=== PATIENT | female | born 1940 | race Caucasian/White ===

== ENCOUNTER 2022-03-09 13:57 | Emergency (ER) | payer MEDICARE, SELFPAY ==
[2022-03-09] VITALS (44 sets, daily range): BP systolic 125–203; BP diastolic 56–91; PULSE 66–96; RESP 12–26; TEMP 36.6; O2SAT 99–100
--- NOTE | 2022-03-09 14:32 | ED.GENADULT ---
HPI - General Adult General Chief complaint: Psychiatric Symptoms Stated complaint: altered Time Seen by Provider: 03/09/22 14:11 Source: patient and EMS Mode of arrival: EMS Limitations: no limitations History of Present Illness HPI narrative: Patient is an 81-year-old female sent here from the correction because I do not want to be there according to patient. EMS states that patient was angry and made a comment about I am tired of this place 1 to get out and jump out the window . Patient denies thoughts of hurting herself, denies suicidal ideation. Patient states that she made that comment because she does not want to be there and wants to leave. Patient states it is my idiot son and his that left me there referring to [facility]. Patient states that she started residing at the correction 1 week ago. Patient states that she would rather be home and does not want to be in a correction and that is why she made those comments. Related Data Allergies Allergy/AdvReac Type Severity Reaction Status Date / Time codeine Allergy Nausea and Verified 11/24/13 12:14 Vomiting niacin Allergy HIVES Verified 11/24/13 12:14 isosorbide [From Imdur] AdvReac Headache Verified 03/09/22 17:07 METALS Allergy Intermediate RASH Uncoded 11/24/13 12:14 REFALEN AdvReac Intermediate FLU LIKE Uncoded 11/24/13 12:14 SYMPTOMS Review of Systems Review of Systems: All systems reviewed & are unremarkable except as noted in HPI and below Constitutional: Constitutional: Denies body ache(s), Denies chills, Denies excessive sweating, Denies fatigue, Denies fever(s), Denies headache(s), Denies lethargy, Denies malaise, Denies weakness and Denies weight loss Eyes: Eyes: Denies blurry vision, Denies change in vision and Denies loss of vision ENT: Denies dizziness, Denies ear discharge, Denies headache(s), Denies lip swelling, Denies epistaxis, Denies nasal congestion, Denies neck pain, Denies throat swelling and Denies tongue swelling Cardiovascular: Cardiovascular: Denies chest pain, Denies chest pain at rest, Denies chest pain with activity, Denies diaphoresis, Denies rapid heart rate, Denies edema, Denies irregular heart rhythm, Denies lightheadedness, Denies palpitations, Denies dyspnea and Denies dyspnea on exertion Respiratory: Respiratory: Denies chest congestion, Denies cough, Denies hemoptysis, Denies dyspnea and Denies dyspnea on exertion Gastrointestinal: Gastrointestinal: Denies abdominal pain, Denies melena, Denies hematochezia, Denies diarrhea, Denies nausea, Denies vomiting and Denies hematemesis Musculoskeletal: Musculoskeletal: Denies abnormal gait, Denies deformity, Denies joint swelling, Denies limited range of motion, Denies neck pain and Denies numbness Neurologic: Denies Abnormal speech present, Denies abnormal gait, Denies confusion, Denies dizziness, Denies headache(s), Denies focal weakness, Denies loss of vision, Denies numbness, Denies Other visual disturbances, Denies Sensory deficit (Neuro) and Denies weakness Psychiatric: Psychiatric: Denies confusion, Denies depression, Denies auditory hallucinations, Denies homicidal ideation and Denies suicidal ideation Endocrine: Endocrine: Denies cold intolerance, Denies excessive sweating, Denies fatigue, Denies heat intolerance and Denies palpitations Hematologic/Lymphatic: Hematologic/Lymphatic: Denies easy bleeding and Denies easy bruising Allergic/Immunologic: Allergic/Immunologic: Denies lip swelling, Denies throat swelling and Denies tongue swelling PMFSH Comments Family history: Unknown Social history: Non-smoker no EtOH use, recent correction resident Exam Const: General: cooperative, healthy appearing, comfortable, no acute distress, well developed, alert and awake; No confusion Orientation/consciousness: oriented to person, oriented to place and No confusion Limitations: no limitations HENMT: Head: normal to inspection, normocephalic and atraumati
[2022-03-09 14:33] LABS: Basophils Absolute Auto 0.1 K/mm3 (0.0-0.1); Basophils Percent Auto 0.9 % (0.2-1.2); Eosinophils Absolute Auto 0.1 K/mm3 (0-0.3); Eosinophils Percent Auto 0.8 % (0-4.4); Hematocrit 40.5 % (37.0-47.0); Immature Granulocyte Absolute 0.02 K/mm3 (0.00-0.031); Immature Granulocyte Percent A 0.3 % (0-0.5); Lymphocytes Absolute Auto 2.06 K/mm3 (0.9-3.2); Lymphocytes Percent Auto 32.4 % (18.3-44.2); Mean Corpuscular HGB Conc 34.6 g/dl (32-36); Mean Corpuscular Volume 86.7 fl (80-100); Mean Platelet Volume 11.9 fl (7.4-10.4); Monocytes Absolute Auto 0.6 K/mm3 (0.1-0.6); Monocytes Percent Auto 8.7 % (2.6-8.5); Neutrophils Absolute Auto 3.6 K/mm3 (1.3-6.7); Neutrophils Percent Auto 56.9 % (45.5-73.1); Platelet Count Result 214 k/mm3 (150-375); Red Blood Count 4.67 M/mm3 (4.2-5.4); Red Cell Distribution Width 13.5 % (11.5-14.5); White Blood Count 6.4 K/mm3 (4.5-10.0)
--- NOTE | 2022-03-09 14:34 | PC.NURSE ---
Per EDP Tiffanie, no sitter needed. Violette from care coordination contacted.
[2022-03-09 14:42] LABS: Alanine Aminotransferase 23 U/L (4-35); Albumin Level 4.7 g/dL (3.5-5.1); Alkaline Phosphatase 108 U/L (38-126); Anion Gap 12 mmol/L (8-16); Aspartate Amino Transferase 26 U/L (14-36); Bilirubin,Total 0.8 mg/dL (0.2-1.3); Blood Urea Nitrogen 14 mg/dL (7-17); Calcium 9.7 mg/dL (8.4-10.2); Carbon Dioxide 21 mmol/L (22-30); Chloride 104 mmol/L (98-107); Estimated Glomerular Filt Rate > 60; Glucose 243 mg/dL (65-110); Potassium 3.8 mmol/L (3.4-5.0); Sodium 137 mmol/L (137-145)
--- NOTE | 2022-03-09 14:54 | PCCCNOTE ---
Met with patient bedside, patient is alert and oriented x 1-2 with dementia. patient was brought to ED by EMS from [facility] for suicidal thoughts. CC as patient if she felt suicidal or homicidal and she was very adamant that she was not, and she also does not want to hurt her son. patient states that they recently put her in a jail and she doesn't like it there. CC attempted to call patients son for transportation home however, son bg, did not answer. CC left a voicemail requesting a call back. plan is for patient to return to assisted living. CC will continue to follow for any needs that may arise.
[2022-03-09 14:58] LABS: Acetaminophen < 10 ug/mL (10-30); Ethanol < 10 mg/dL (<10); Salicylate < 1.0 mg/dL (2-20)
[2022-03-09 17:03] LABS: Add Urine Microscopic? YES; Appearance Urine Cloudy (Clear); Bacteria Urine Trace /hpf; Bilirubin Urine Negative (Negative); Blood Urine Negative (Negative); Color Urine Amber (Yellow); Glucose Urine UA 1+ mg/dL (Negative); Ketones Urine 2+ mg/dL (Negative); Leukocyte Esterase Ur 2+ LEU/UL (Negative); Mucus Urine Moderate /lpf; Nitrate Urine Negative (Negative); Protein Urine 1+ mg/dL (Negative); Squamous Epithelial Cell Urine Occasional /hpf (Few); WBC Urine 16-20 /hpf
[2022-03-09 17:04] LABS: Specific Grav Ur 1.033 (1.001-1.035)
--- NOTE | 2022-03-09 19:15 | PC.NURSE ---
pt ready for discharge, report called to Ibeth at [facility] at [place]. Pt comfortable at this time, denies any thoughts of hurting herself.
--- NOTE | 2022-03-09 19:18 | PC.NURSE ---
called [facility] to request transport. ETA [id number]
== END 2022-03-09 20:19 ==
PROVIDERS: Emergency Medicine; Emergency Provider Emergency Medicine; PCP Family Medicine
DX: N39.0 Urinary tract infection, site not specified (principal); R45.4 Irritability and anger
CPT/HCPCS: 36415; 80053; 80307; 81001; 84443; 85025; 87086; 87088; 99283; A9270

== ENCOUNTER 2022-04-29 12:59 | Inpatient (IN) | payer MEDICARE, SELFPAY ==
[2022-04-29] VITALS (8 sets, daily range): BP systolic 90–147; BP diastolic 44–52; PULSE 59–68; RESP 16–23; TEMP 36.1–36.7; O2SAT 96–100; BMI 23.0
--- NOTE | ~2022-04-29 | US_ITS ---
EXAMINATION: US carotid duplex BI DATE: 04/30/2022 10:53 INDICATION: Syncope. Cerebral atherosclerosis. TECHNIQUE: Grayscale, color Doppler, and pulsed Doppler images of the cervical carotid arteries were obtained. The degree of vessel stenosis is placed in one of the following categories: normal, <50%, 5 0-69%, >=70% but less than near-occlusion, near-occlusion, or total occlusion. Note that percent sten osis relative to normal distal artery lumen diameter is indirectly measured from velocity measurement s as described by Karsten, et al. Radiology 2003; 229:340-346. COMPARISON: None. FINDINGS: RIGHT: The right common carotid artery (CCA) peak systolic velocity (PSV) is 127 cm/s. The right internal ca rotid artery (ICA) PSV is 102 cm/s. The right ICA end-diastolic velocity (EDV) is 31 cm/s. The right ICA/CCA PSV ratio is 0.8. Grayscale and color Doppler images yield an estimate of <50% diameter reduc tion from plaque in the ICA. The external carotid artery (ECA) PSV is 118 cm/s. There is antegrade fl ow in the right vertebral artery. LEFT: The left CCA PSV is 82 cm/s. The left ICA PSV is 81 cm/s. The left ICA EDV is 23 cm/s. The left ICA/C CA PSV ratio is 1.0. Grayscale and color Doppler images yield an estimate of <50% diameter reduction from plaque in the ICA. The ECA PSV is 118 cm/s. There is antegrade flow in the left vertebral artery . IMPRESSION: 1. <50% stenosis in the right internal carotid artery. 2. <50% stenosis in the left internal carotid artery. Reviewed, dictated and finalized at location A.
--- NOTE | ~2022-04-29 | CT_ITS ---
EXAMINATION: CT pelvis wo con DATE: 04/29/2022 14:39 INDICATION: Left hip pain. Fall. TECHNIQUE: Computed tomography (CT) of the pelvis was performed without intravenous contrast. Automat ed exposure control and iterative reconstruction technique were employed. The dose-length product was 139.56 mGy-cm. COMPARISON: Left hip radiograph 04/29/2022 FINDINGS: There is no free intraperitoneal fluid. There are chronic bilateral L5 pars defects. There is 8 mm anterolisthesis of L5 on S1. There is severe degenerative disc disease at L5-S1 with chronic 2/5 height loss of L5 vertebral body posteriorly. There are acute fractures involving the left superi or and inferior pubic rami and left parasymphyseal pubis. There is mild osteoarthritis of the hips. IMPRESSION: 1. Acute fractures of the left superior and inferior pubic rami and left parasymphyseal pubis. 2. Mild osteoarthritis of the hips. Reviewed, dictated and finalized at location B. IMPRESSION: 1. Acute fractures of the left superior and inferior pubic rami and left parasy mphyseal pubis. 2. Mild osteoarthritis of the hips.
--- NOTE | ~2022-04-29 | XR_ITS ---
XR hip LT min 2V DATE: 04/29/2022 13:58 INDICATION: Fall. Left hip pain. TECHNIQUE: AP and crosstable lateral views of left hip COMPARISON: None FINDINGS: There is osteopenia. There are fractures of the left superior and inferior pubic ramus. No fracture of the left hip or dis location of the left hip is noted otherwise. The pubic symphysis and sacroiliac joints appear intact. IMPRESSION: Fractures of the superior and inferior pubic rami. Additional pelvic ring fracture may be present. Consider CT pelvis examination. Reviewed, dictated and finalized at location A. IMPRESSION: Fractures of the superior and inferior pubic rami. Additional pelvi c ring fracture may be present. Consider CT pelvis examination.
--- NOTE | ~2022-04-29 | CT_ITS ---
EXAMINATION: CT brain wo con DATE: 04/29/2022 13:52 INDICATION: Fall. TECHNIQUE: Computed tomography (CT) of the head was performed without intravenous contrast. The mA wa s adjusted according to patient size. Iterative reconstruction technique was employed. The dose-lengt h product was 605.33 mGy-cm. 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 T here is an infarct involving the right temporal occipital region. There is no intracranial hemorrhage or abnormal mass lesion. The ventricles are normal in size. The paranasal sinuses are clear. The mas toid air cells are normal. There are likely changes of ocular lens replacement surgeries. IMPRESSION: 1. Infarct involving the right temporal occipital region, likely subacute or chronic. 2. 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 Reviewed, dictated and finalized at location B. IMPRESSION: 1. Infarct involving the right temporal occipital region, likely subacute or ch ronic. 2. 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
--- NOTE | ~2022-04-29 | XR_ITS ---
XR chest 1V DATE: 04/29/2022 13:58 INDICATION: Unwitnessed fall TECHNIQUE: AP chest COMPARISON: None FINDINGS: Status post sternotomy. Diffuse osteopenia. Heart size appears within normal range. Is aortic arch calcification. No hilar or mediastinal enlargement is evident. No pulmonary consolidation, pleural effusion or pneumothorax. Diffuse osteopenia. IMPRESSION: No active cardiopulmonary disease Status post sternotomy Osteopenia Reviewed, dictated and finalized at location A.
--- NOTE | ~2022-04-29 | XR_ITS ---
EXAM: XR wrist LT min 3V DATE: 04/29/2022 14:45 HISTORY: fall,medial wrist pain and bruising . COMPARISON: None available. FINDINGS: Decreased mineralization. Comminuted minimally impacted and mildly dorsally angulated frac ture of the distal left radius with extension to the radiocarpal joint. Transverse minimally displace d ulnar styloid fracture.. No lytic or blastic lesion. Scattered degenerative changes. No erosion or periosteal change. Soft tissue swelling. IMPRESSION: Comminuted minimally impacted and mildly dorsally angulated intra-articular left distal r adial fracture. Minimally displaced left ulnar styloid fracture. Reviewed, dictated and finalized at location K. IMPRESSION: Comminuted minimally impacted and mildly dorsally angulated intra-a rticular left distal radial fracture. Minimally displaced left ulnar styloid fr acture.
--- NOTE | ~2022-04-29 | XR_ITS ---
EXAM: XR knee LT 2V DATE: 04/29/2022 13:58 HISTORY: fall, pain . COMPARISON: None available. FINDINGS: Osteopenia. No fracture or dislocation. No lytic or blastic lesion. Mild tricompartmental osteoarthritis. No erosion or periosteal change. Soft tissues within normal limits. IMPRESSION: No acute osseous finding in the left knee. Reviewed, dictated and finalized at location K.
--- NOTE | 2022-04-29 13:17 | ECG_ITS ---
Measurements Intervals [place] Rate: 65 P: 57 SD: 158 QRS: 45 QRSD: 142 T: 56 QT: 522 QTc: 543 Interpretive Statements SINUS RHYTHM LEFT BUNDLE BRANCH BLOCK [120+ ms QRS DURATION, 80+ ms Q/S IN V1/V2, 85+ ms R IN I/aVL/V5/V6] ABNORMAL ECG NO PREVIOUS ECG AVAILABLE FOR COMPARISON Electronically Signed On 04-29-2022 15:03:58 CDT by Mode Richard M.D.
--- NOTE | 2022-04-29 13:20 | ED.FALL ---
HPI - Fall General Chief Complaint: Fall Stated Complaint: fall; left hip & wrist pain Time Seen by Provider: 04/29/22 13:03 History of Present Illness HPI Narrative: Patient is an 81-year-old female here for evaluation after unwitnessed fall at her long-term today. History limited as patient is severely hard of hearing and also due to her baseline mental status. She states she is unsure what happened this morning, she said that she was feeling in her usual state of health but she woke up on the floor. She does not believe she hit her head or lost consciousness. She is currently complaining of left hip pain, left wrist pain and left knee pain. She tells me she is able to walk usually without assistance, but she is unsure if she is able to now. She denies chest pain, shortness of breath, headaches, visual changes, numbness or tingling in her legs. Related Data Home Medications Medication Instructions Recorded Confirmed [place] 3 Fish Oil 1,000 mg PO TID 04/29/22 04/29/22 acetaminophen 325 mg capsule 650 mg PO Q6H PRN Pain (Scale 04/29/22 04/29/22 (Tylenol) Score 1-3) amantadine HCl 100 mg tablet 100 mg PO BID 04/29/22 04/29/22 aspirin 81 mg capsule 81 mg PO DAILY 04/29/22 04/29/22 citalopram 10 mg tablet 10 mg PO DAILY 04/29/22 04/29/22 dextrose-vitamin D3 10,000 PO DAILY 04/29/22 docusate sodium 100 mg tablet 100 mg PO BID 04/29/22 04/29/22 donepezil 10 mg tablet 10 mg PO DAILY 04/29/22 04/29/22 dorzolamide 2 % eye drops 1 drp LEFT EYE TID 04/29/22 04/29/22 insulin glargine 100 unit/mL (3 ea subcut 04/29/22 mL) subcutaneous pen (Basaglar KwikPen U-100 Insulin) insulin lispro 100 unit/mL ml 04/29/22 subcutaneous solution (Humalog U-100 Insulin) lisinopril 10 mg tablet 10 mg PO DAILY 04/29/22 04/29/22 pantoprazole 40 mg tablet,delayed 40 mg PO DAILY 04/29/22 04/29/22 release simvastatin 20 mg tablet 20 mg PO HS 04/29/22 04/29/22 Allergies Allergy/AdvReac Type Severity Reaction Status Date / Time codeine Allergy Nausea and Verified 04/29/22 16:17 Vomiting niacin Allergy HIVES Verified 04/29/22 16:17 isosorbide [From Imdur] AdvReac Headache Verified 04/29/22 16:17 METALS Allergy Intermediate RASH Uncoded 11/24/13 12:14 REFALEN AdvReac Intermediate FLU LIKE Uncoded 11/24/13 12:14 SYMPTOMS Review of Systems Review of Systems: Gen: Denies fevers or chills Eyes: Denies eye pain or visual change ENT: Denies congestion Respiratory: Denies shortness of breath or cough CV: Denies chest pain or palpitations GI: Denies abdominal pain nausea, emesis or diarrhea : denies burning, urgency, frequency or hematuria Musculoskeletal: Reports left wrist, left hip and knee pain Neuro: Denies numbness, tingling, weakness or focal weakness Skin: Denies rash Except as documented, all other systems reviewed and negative [facility] Family History Family History (Updated 04/29/22 @ 18:49 by Jihan Jaime, RN) Other Unknown family medical history Social History Social History Smoking status: Former smoker Alcohol intake: never Substance use: never Spiritual care concerns: No Exam Narrative: APPEARANCE: Well appearing, no pain in distress, well-nourished. Head: normocephalic and atraumatic. EYES: PERRLA/EOMI, conjunctivae clear NOSE: No nasal drainage EARS: Hard of hearing. External ear normal in appearance THROAT: Oropharynx is clear. Mucous membranes are moist. NECK: Supple. No adenopathy, no masses. RESPIRATORY: Airway patent, respirations nonlabored. Clear to auscultation bilaterally, no rales, rhonchi, wheezing. CARDIOVASCULAR: Regular rate and rhythm without murmurs, rubs, or gallops. ABDOMINAL: Normoactive bowel sounds. Soft, nontender, nondistended. No rebound tenderness or guarding. MUSCULOSKELETAL: No bony tenderness to left hip or knee. Pain in hip elicited with flexion of hip and knee. No pain with internal or external rotation of the leg.Tender to palpation over radial sty
[2022-04-29] MEDS: SODIUM CHLORIDE 0.9% IV 1,000 ML 999 ML IV CONT (13:35)
[2022-04-29 13:44] LABS: Basophils Percent Auto 0.6 % (0.2-1.2); Eosinophils Absolute Auto 0.2 K/mm3 (0-0.3); Eosinophils Percent Auto 2.6 % (0-4.4); Hematocrit 38.2 % (37.0-47.0); Hemoglobin 13.1 g/dL (12.0-15.0); Immature Granulocyte Absolute 0.07 K/mm3 (0.00-0.031); Immature Granulocyte Percent A 1.1 % (0-0.5); Lymphocytes Absolute Auto 2.17 K/mm3 (0.9-3.2); Lymphocytes Percent Auto 33.3 % (18.3-44.2); Mean Corpuscular HGB Conc 34.3 g/dl (32-36); Mean Corpuscular Hemoglobin 30.6 pg (26-34); Mean Corpuscular Volume 89.3 fl (80-100); Monocytes Absolute Auto 0.4 K/mm3 (0.1-0.6); Monocytes Percent Auto 5.7 % (2.6-8.5); Neutrophils Absolute Auto 3.7 K/mm3 (1.3-6.7); Neutrophils Percent Auto 56.7 % (45.5-73.1); Platelet Count Result 195 k/mm3 (150-375); Red Blood Count 4.28 M/mm3 (4.2-5.4); Red Cell Distribution Width 13.6 % (11.5-14.5); White Blood Count 6.5 K/mm3 (4.5-10.0)
[2022-04-29 13:54] LABS: Lactic Acid Reflex 2.2 mmol/L (0.7-2.0)
[2022-04-29 13:56] LABS: Alanine Aminotransferase 31 U/L (6-35); Albumin Level 4.3 g/dL (3.5-5.1); Alkaline Phosphatase 76 U/L (38-126); Anion Gap 9 mmol/L (8-16); Aspartate Amino Transferase 29 U/L (14-36); Bilirubin,Total 0.4 mg/dL (0.2-1.3); Blood Urea Nitrogen 16 mg/dL (7-17); Calcium 9.5 mg/dL (8.4-10.2); Carbon Dioxide 21 mmol/L (22-30); Chloride 105 mmol/L (98-107); Estimated CRCL calculation 40 ml/min; Estimated Glomerular Filt Rate > 60; Glucose 139 mg/dL (65-110); Potassium 3.8 mmol/L (3.4-5.0); Sodium 135 mmol/L (137-145)
[2022-04-29 14:06] LABS: Troponin I < 0.012 ng/mL (0.000-0.034)
[2022-04-29 15:14] LABS: Appearance Urine Slightly Cloudy (Clear); Bilirubin Urine 1+ (Negative); Blood Urine Negative (Negative); Color Urine Yellow (Yellow); Glucose Urine UA Trace mg/dL (Negative); Ketones Urine 1+ mg/dL (Negative); Leukocyte Esterase Ur Negative LEU/UL (Negative); Nitrate Urine Negative (Negative); Protein Urine 1+ mg/dL (Negative); Specific Grav Ur >= 1.030 (1.001-1.035)
[2022-04-29 15:23] LABS: Calcium Oxalate Crystals Urine Present /hpf; Mucus Urine Moderate /lpf; Squamous Epithelial Cell Urine Occasional /hpf (Few)
[2022-04-29 15:25] LABS: Add Urine Microscopic? YES
[2022-04-29] MEDS: ACETAMINOPHEN 325 MG TABLET 650 MG PO (16:23)
[2022-04-29 16:42] LABS: Reflex Lactic Acid Yes or No Add Lactic
--- NOTE | 2022-04-29 18:39 | PC.NURSE ---
This patient, Araceli Delatorre, was admitted to Medical Room 253-01. Patient/family oriented to hospital policies and general routines including ID bracelet, bed and alarms, visiting hours, pain management, procedures, bathroom and other care routines, personal items, smoking policy, room service/diet, and visiting hours. Information on how to activate the Rapid Response Team has been discussed. Patient/Family are encouraged to report perceived risks to care and to ask questions if they do not understand what they are told or what they should do.
--- NOTE | 2022-04-29 20:00 | PM.IMHP ---
H&P: HPI History of Present Illness Date/Time: 04/29/22 20:00 Chief Complaint: Fall Narrative: Patient is an 81-year-old female with past medical history of dementia, hypertension, hyperlipidemia, diabetes, CABG who presented to the ED after falling at the senior care. Patient is a poor historian due to dementia and hearing. However she did tell me that she fell and she was not doing anything she was just normally walking. She states that she did not black out or have any chest pain, shortness of breath, nausea, vomiting, diarrhea, constipation, visual changes, headache, or any other issues. Patient stated that she does have some pain in her left arm that she rates about a 5/6. She also states that she does not really remember a lot of anything. Review of Systems Review of Systems: All systems reviewed & are unremarkable except as noted in HPI and below PMFSH Past Medical History Medical History (Updated 04/29/22 @ 20:41 by RASHAUN Dominguez) Dementia Diabetes Hyperlipidemia Hypertension Surgical History Surgical History (Updated 04/29/22 @ 20:31 by RASHAUN Dominguez) Hx of CABG Family History Family History (Updated 04/29/22 @ 18:49 by Jihan Jaime RN) Other Unknown family medical history Social History Social History Smoking status: Former smoker Alcohol intake: never Substance use: never Spiritual care concerns: No Meds Home Medications and Allergies Home Medications Medication Instructions Recorded Confirmed Type [place] 3 Fish Oil 1,000 mg PO TID 04/29/22 04/29/22 History acetaminophen 325 mg capsule 650 mg PO Q6H PRN Pain (Scale 04/29/22 04/29/22 History (Tylenol) Score 1-3) amantadine HCl 100 mg tablet 100 mg PO BID 04/29/22 04/29/22 History aspirin 81 mg capsule 81 mg PO DAILY 04/29/22 04/29/22 History citalopram 10 mg tablet 10 mg PO DAILY 04/29/22 04/29/22 History dextrose-vitamin D3 10,000 PO DAILY 04/29/22 History docusate sodium 100 mg tablet 100 mg PO BID 04/29/22 04/29/22 History donepezil 10 mg tablet 10 mg PO DAILY 04/29/22 04/29/22 History dorzolamide 2 % eye drops 1 drp LEFT EYE TID 04/29/22 04/29/22 History insulin glargine 100 unit/mL (3 ea subcut 04/29/22 History mL) subcutaneous pen (Basaglar KwikPen U-100 Insulin) insulin lispro 100 unit/mL ml 04/29/22 History subcutaneous solution (Humalog U-100 Insulin) lisinopril 10 mg tablet 10 mg PO DAILY 04/29/22 04/29/22 History pantoprazole 40 mg tablet,delayed 40 mg PO DAILY 04/29/22 04/29/22 History release simvastatin 20 mg tablet 20 mg PO HS 04/29/22 04/29/22 History Allergies Allergy/AdvReac Type Severity Reaction Status Date / Time codeine Allergy Nausea and Verified 04/29/22 16:17 Vomiting niacin Allergy HIVES Verified 04/29/22 16:17 isosorbide [From Imdur] AdvReac Headache Verified 04/29/22 16:17 METALS Allergy Intermediate RASH Uncoded 11/24/13 12:14 REFALEN AdvReac Intermediate FLU LIKE Uncoded 11/24/13 12:14 SYMPTOMS Vital Signs Vital Signs - 24 hr 04/29/22 12:57 04/29/22 14:56 04/29/22 15:02 Temperature 97 F L Pulse Rate 62 64 66 Respiratory Rate 16 23 H 20 Blood Pressure 90/52 L 127/52 L 126/44 L Pulse Oximetry 99 100 100 Oxygen Delivery Room Air 04/29/22 15:32 04/29/22 17:50 04/29/22 18:44 Temperature 98.0 F Pulse Rate 68 63 59 L Respiratory Rate 20 16 16 Blood Pressure 117/44 L 136/45 L 147/50 H Pulse Oximetry 96 97 100 Oxygen Delivery 04/29/22 19:43 Temperature 98 F Pulse Rate 66 Respiratory Rate 16 Blood Pressure 133/47 L Pulse Oximetry 99 Oxygen Delivery Exam Const: General: cooperative, comfortable, no acute distress, well developed, alert and awake Nutritional Appearance: well nourished Orientation/consciousness: oriented to person, oriented to place and confusion Limitations: no limitations HENMT: Head: normal to inspection Ears: hearing grossly impaired General nose exam: Normal external
[2022-04-29 20:41] LABS: Glucose Point of Care 236 mg/dl (65-105)
[2022-04-30] VITALS (13 sets, daily range): BP systolic 111–147; BP diastolic 46–79; PULSE 59–72; RESP 16–20; TEMP 36.4–36.9; O2SAT 95–100
--- NOTE | 2022-04-30 | ECHO_ITS ---
Patient Info Name: Araceli Delatorre Age: 81 years : 1940 Gender: Female Ht: 61 in Wt: 121 lbs BSA: 1.54 m2 HR: 67 bpm BP: 120 / 60 mmHg Heart Rhythm: Sinus Rhythm Technical Quality: Fair Exam Date: 04/30/2022 8:54 AM Exam Location: [facility] Patient Status: Inpatient Admit Date: 04/29/2022 Staff Ordering Physician: José Galdamez Brake Mechanic: Tasneem Chakraborty RDCS Attending Provider: Kym Sandy DO Referring Physician: Rudolph PALACIOS; Exam Type: CA echo dop bubble study w con Study Info Indications - SYNCOPE Complete two-dimentional, color flow and Doppler transthoracic echocardiogram is performed with agitated saline and with contrast to opacify the left ventricle and to improve the delineation of the left ventricle endocardial borders. Contrast/Agitated Saline Contrast/Ag. Saline: Definity Amount: 3.00 ml Administered By: Tasneem Chakraborty RDCS Existing IV Access: Yes IV Access Condition: patent with no signs of infiltration Contrast/Ag. Saline: Agitated Saline Amount: 20.00 ml Existing IV Access: Yes IV Access Condition: patent with no signs of infiltration Summary 1. Left ventricular chamber dimension is normal. 2. Left ventricular systolic function is normal, estimated at 65-70%. 3. There is mildly increased left ventricular wall thickness. 4. The left ventricular diastolic function is grade I diastolic dysfunction. 5. Left atrial chamber dimension is mildly enlarged. 6. There is moderate aortic valve stenosis with a peak velocity of 247 cm/s, mean gradient of 14 mmHg, and aortic valve area of 1.3 cm2. 7. There is trace aortic valve regurgitation. 8. There is severe aortic valve calcification. 9. The mitral valve annulus is severely calcified. 10. There is mild tricuspid valve regurgitation. 11. Mild pulmonary hypertension, estimated pulmonary arterial systolic pressure is 40 mmHg. Left Ventricle Left ventricular chamber dimension is normal. Left ventricular systolic function is normal, estimated at 65-70%. There is mildly increased left ventricular wall thickness. The left ventricular diastolic function is grade I diastolic dysfunction. Right Ventricle Right ventricular chamber dimension is normal. Right ventricular systolic function is normal. Left Atria Left atrial chamber dimension is mildly enlarged. Right Atria Right atrial chamber dimension is normal. Atrial Septum Intact interatrial septum visualized by color flow and agitated saline imaging. Aortic Valve There is moderate aortic valve stenosis with a peak velocity of 247 cm/s, mean gradient of 14 mmHg, and aortic valve area of 1.3 cm2. There is trace aortic valve regurgitation. There is severe aortic valve calcification. Pulmonic Valve The pulmonic valve is normal. There is no pulmonic valve stenosis. There is trace pulmonic regurgitation. Mitral Valve There is no mitral valve stenosis. There is trace mitral valve regurgitation. The mitral valve annulus is severely calcified. Tricuspid Valve The tricuspid valve leaflets are normal. There is no significant tricuspid valve stenosis. There is mild tricuspid valve regurgitation. Mild pulmonary hypertension, estimated pulmonary arterial systolic pressure is 40 mmHg. Pericardium/Pleural The pericardium appears normal. There is no pericardial effusion. Inferior Vena Cava
[2022-04-30] MEDS: ACETAMINOPHEN 325 MG TABLET 650 MG PO (01:14)
[2022-04-30] MEDS: SIMVASTATIN 20 MG TABLET PO ×2 (01:15→20:02)
[2022-04-30 05:36] LABS: Basophils Absolute Auto 0.1 K/mm3 (0.0-0.1); Basophils Percent Auto 0.7 % (0.2-1.2); Eosinophils Absolute Auto 0.1 K/mm3 (0-0.3); Eosinophils Percent Auto 1.9 % (0-4.4); Hematocrit 34.7 % (37.0-47.0); Immature Granulocyte Absolute 0.02 K/mm3 (0.00-0.031); Immature Granulocyte Percent A 0.3 % (0-0.5); Lymphocytes Absolute Auto 2.14 K/mm3 (0.9-3.2); Lymphocytes Percent Auto 28.6 % (18.3-44.2); Mean Corpuscular HGB Conc 34.6 g/dl (32-36); Mean Corpuscular Hemoglobin 30.2 pg (26-34); Mean Corpuscular Volume 87.2 fl (80-100); Mean Platelet Volume 11.9 fl (7.4-10.4); Monocytes Absolute Auto 0.5 K/mm3 (0.1-0.6); Monocytes Percent Auto 6.6 % (2.6-8.5); Neutrophils Absolute Auto 4.6 K/mm3 (1.3-6.7); Neutrophils Percent Auto 61.9 % (45.5-73.1); Platelet Count Result 145 k/mm3 (150-375); Red Blood Count 3.98 M/mm3 (4.2-5.4); Red Cell Distribution Width 13.3 % (11.5-14.5); White Blood Count 7.5 K/mm3 (4.5-10.0)
[2022-04-30 05:54] LABS: Alanine Aminotransferase 25 U/L (6-35); Albumin Level 3.6 g/dL (3.5-5.1); Alkaline Phosphatase 65 U/L (38-126); Anion Gap 6 mmol/L (8-16); Aspartate Amino Transferase 20 U/L (14-36); Bilirubin,Total 0.5 mg/dL (0.2-1.3); Blood Urea Nitrogen 10 mg/dL (7-17); Calcium 8.6 mg/dL (8.4-10.2); Carbon Dioxide 21 mmol/L (22-30); Chloride 109 mmol/L (98-107); Estimated CRCL calculation 56 ml/min; Estimated Glomerular Filt Rate > 60; Glucose 158 mg/dL (65-110); Magnesium 1.9 mg/dL (1.6-2.3); Sodium 136 mmol/L (137-145)
--- NOTE | 2022-04-30 07:07 | PCOTNOTE ---
Needs ortho consult prior to completing OT evaluation.
[2022-04-30 08:13] LABS: Glucose Point of Care 173 mg/dl (65-105)
[2022-04-30] MEDS: PERFLUTREN LIPID MICROSPHERES 1.5 ML VIAL DILUTED TO 10 ML TOTAL VOLUME IV PUSH (09:47)
--- NOTE | 2022-04-30 09:48 | IVDEFINITY ---
Prior to administration of IV Definity the patient was educated on the risks and benefits of the imaging enhancing agent including potential adverse side effects. The patient verbalized understanding. Allergies were verified. No exclusion criteria were identified and at least one of the following inclusion criteria were met: 1) physician request, 2) patient technically difficult to image (per the [place] [employer] guidelines of two or more segments not discernable within the apical view), or 3) questionable left ventricular function. ?
[2022-04-30] MEDS: AMANTADINE HCL 100 MG CAPSULE PO ×2 (09:54→17:11)
[2022-04-30] MEDS: ASPIRIN 81 MG ENTERIC TABLET PO (09:55)
[2022-04-30] MEDS: DOCUSATE SODIUM 100 MG CAPSULE PO ×2 (09:55→20:02)
[2022-04-30] MEDS: CITALOPRAM HYDROBROMIDE 10 MG TABLET PO (09:55)
[2022-04-30] MEDS: DONEPEZIL HCL 10 MG TABLET PO (09:56)
[2022-04-30] MEDS: ENOXAPARIN 40 MG/0.4 ML SYRINGE SUB-Q (09:56)
[2022-04-30] MEDS: PANTOPRAZOLE 40 MG TABLET PO (09:56)
[2022-04-30] MEDS: DORZOLAMIDE HCL 2% OPHTH DROPS 1 DROP LEFT EYE ×3 (09:56→17:11)
[2022-04-30] MEDS: lisinopriL 10 MG TABLET PO (09:58)
--- NOTE | 2022-04-30 11:30 | P.PNIM_ITS ---
Progress Note: A&P Assessment and Plan (1) TIA (transient ischemic attack): Code(s): G45.9 - Transient cerebral ischemic attack, unspecified Status: Acute Assessment and Plan: * Head CT shows subacute or chronic infarct * Neurology on board * Aspirin and atorvastatin ordered * PT/OT (2) Syncope and collapse: Code(s): R55 - Syncope and collapse Status: Acute Assessment and Plan: * ED physician notes patient waking up on the floor * Head CT does indicate a subacute or acute infarct * Carotid Dopplers <50% stenosis * Neurology consulted thank you for your help * Echo with bubble EF of 65-70% with grade 1 diastolic dysfunction , moderate aortic valve stenosis * Will be unable to get MRI due to history of cabg * PT and OT ordered * Aspirin and statin on board (3) Pubic ramus fracture: Code(s): S32.599A - Other specified fracture of unspecified pubis, initial encounter for closed fracture Status: Acute Assessment and Plan: * Pelvis fracture noted on x-ray * PT and OT * Orthopedics consulted thank you for your help * Care coordination consult for placement * Will need rehab * pain control * stool softeners * Give one dose of Caldolor 800mg IV Will need follow up xrays in 1 month (4) Distal radial fracture: Code(s): S52.509A - Unspecified fracture of the lower end of unspecified radius, initial encounter for closed fracture Status: Acute Assessment and Plan: * Currently in a wrap * Ortho has been consulted * Will need rehab placement * pain control ordered * Care coordination consult * Secondary to fall * PT and OT evaluation (5) Fall: Code(s): W19.XXXA - Unspecified fall, initial encounter Status: Acute Assessment and Plan: * See above * PT and OT (6) Hypertension: Code(s): I10 - Essential (primary) hypertension Status: Acute Assessment and Plan: * Current blood pressure 120/60 * Continue home lisinopril * Trend blood pressure * Adjust therapy as indicated (7) Diabetes: Code(s): E11.9 - Type 2 diabetes mellitus without complications Status: Acute Assessment and Plan: * Current glucose 158 * Continue home Lantus 37 units at night * Insulin sliding scale * Accu-Cheks AC and HS * Diabetic diet * Trend glucose * Adjust therapy as indicated (8) Hyperlipidemia: Code(s): E78.5 - Hyperlipidemia, unspecified Status: Acute Assessment and Plan: * Continue home simvastatin 20 mg p.o. at night * AST/ALT (9) Dementia: Code(s): F03.90 - Unspecified dementia without behavioral disturbance Status: Acute Assessment and Plan: * Continue home meds * Trend mental status * Adjust therapy as indicated Time Spent With Patient Time with patient: Greater than 35 minutes Subjective Date/time seen: 04/30/221129 Interval history: 04/30/221129 Patient stated that she is having a lot of pain today a 5/ however she stated it is not as bad as it was. Her son was also present and they were talking her discharge from the hospital. Patient denies any chest pain, shortness of breath, diarrhea, constipation, weakness, fatigue, sweats, fevers, chills. P
--- NOTE | 2022-04-30 11:30 | PM.IMPN ---
Progress Note: A&P Assessment and Plan (1) TIA (transient ischemic attack): Code(s): G45.9 - Transient cerebral ischemic attack, unspecified Status: Acute Assessment and Plan: Head CT shows subacute or chronic infarct Neurology on board Aspirin and atorvastatin ordered PT/OT (2) Syncope and collapse: Code(s): R55 - Syncope and collapse Status: Acute Assessment and Plan: ED physician notes patient waking up on the floor Head CT does indicate a subacute or acute infarct Carotid Dopplers <50% stenosis Neurology consulted thank you for your help Echo with bubble EF of 65-70% with grade 1 diastolic dysfunction , moderate aortic valve stenosis Will be unable to get MRI due to history of cabg PT and OT ordered Aspirin and statin on board (3) Pubic ramus fracture: Code(s): S32.599A - Other specified fracture of unspecified pubis, initial encounter for closed fracture Status: Acute Assessment and Plan: Pelvis fracture noted on x-ray PT and OT Orthopedics consulted thank you for your help Care coordination consult for placement Will need rehab pain control stool softeners Give one dose of Caldolor 800mg IV Will need follow up xrays in 1 month (4) Distal radial fracture: Code(s): S52.509A - Unspecified fracture of the lower end of unspecified radius, initial encounter for closed fracture Status: Acute Assessment and Plan: Currently in a wrap Ortho has been consulted Will need rehab placement pain control ordered Care coordination consult Secondary to fall PT and OT evaluation (5) Fall: Code(s): W19.XXXA - Unspecified fall, initial encounter Status: Acute Assessment and Plan: See above PT and OT (6) Hypertension: Code(s): I10 - Essential (primary) hypertension Status: Acute Assessment and Plan: Current blood pressure 120/60 Continue home lisinopril Trend blood pressure Adjust therapy as indicated (7) Diabetes: Code(s): E11.9 - Type 2 diabetes mellitus without complications Status: Acute Assessment and Plan: Current glucose 158 Continue home Lantus 37 units at night Insulin sliding scale Accu-Cheks AC and HS Diabetic diet Trend glucose Adjust therapy as indicated (8) Hyperlipidemia: Code(s): E78.5 - Hyperlipidemia, unspecified Status: Acute Assessment and Plan: Continue home simvastatin 20 mg p.o. at night AST/ALT 20/25 (9) Dementia: Code(s): F03.90 - Unspecified dementia without behavioral disturbance Status: Acute Assessment and Plan: Continue home meds Trend mental status Adjust therapy as indicated Time Spent With Patient Time with patient: Greater than 35 minutes Subjective Date/time seen: 04/30/221129 Interval history: 04/30/221129 Patient stated that she is having a lot of pain today a 5/10 however she stated it is not as bad as it was. Her son was also present and they were talking her discharge from the hospital. Patient denies any chest pain, shortness of breath, diarrhea, constipation, weakness, fatigue, sweats, fevers, chills. Patient stated that her pain in her hip is okay as long she does not move it. She is more complaining about the pain in her wrist. It does appears if the patient did have a subacute stroke. Awaiting Neurology for further instructions. 04/29/22? 20:00 Patient is an 81-year-old female with past medical history of dementia, hypertension, hyperlipidemia, diabetes, CABG who presented to the ED after [facility] Patient is a poor historian due to dementia and hearing.? However she did tell me that she fell and she was not doing anything she was just normally walking.? She states that she did not black out or have any chest pain, shortness of eloina
[2022-04-30 11:53] LABS: Glucose Point of Care 223 mg/dl (65-105)
[2022-04-30] MEDS: INSULIN ASPART (*BKC) 100 UNITS/ML SUB-Q ×2 (11:55→17:11)
--- NOTE | 2022-04-30 11:56 | WPDNEURCNPN ---
Consult date: 04/30/22 Time Seen: 10:00 HPI: Araceli Delatorre is a 81 year old female [facility] Past Medical History Medical History (Updated 04/29/22 @ 20:41 by RASHAUN Dominguez) Dementia Diabetes Hyperlipidemia Hypertension Surgical History Surgical History (Updated 04/29/22 @ 20:31 by RASHAUN Dominguez) Hx of CABG Family History Family History (Updated 04/29/22 @ 18:49 by Jihan Jaime RN) Other Unknown family medical history Social History Social History Smoking status: Former smoker Alcohol intake: never Substance use: never Spiritual care concerns: No Meds Home Medications and Allergies Home Medications Medication Instructions Recorded Confirmed Type [place] 3 Fish Oil 1,000 mg PO TID 04/29/22 04/29/22 History acetaminophen 325 mg capsule 650 mg PO Q6H PRN Pain (Scale 04/29/22 04/29/22 History (Tylenol) Score 1-3) amantadine HCl 100 mg tablet 100 mg PO BID 04/29/22 04/29/22 History aspirin 81 mg capsule 81 mg PO DAILY 04/29/22 04/29/22 History citalopram 10 mg tablet 10 mg PO DAILY 04/29/22 04/29/22 History dextrose-vitamin D3 10,000 PO DAILY 04/29/22 History docusate sodium 100 mg tablet 100 mg PO BID 04/29/22 04/29/22 History donepezil 10 mg tablet 10 mg PO DAILY 04/29/22 04/29/22 History dorzolamide 2 % eye drops 1 drp LEFT EYE TID 04/29/22 04/29/22 History insulin glargine 100 unit/mL (3 ea subcut 04/29/22 History mL) subcutaneous pen (Basaglar KwikPen U-100 Insulin) insulin lispro 100 unit/mL ml 04/29/22 History subcutaneous solution (Humalog U-100 Insulin) lisinopril 10 mg tablet 10 mg PO DAILY 04/29/22 04/29/22 History pantoprazole 40 mg tablet,delayed 40 mg PO DAILY 04/29/22 04/29/22 History release simvastatin 20 mg tablet 20 mg PO HS 04/29/22 04/29/22 History Allergies Allergy/AdvReac Type Severity Reaction Status Date / Time codeine Allergy Nausea and Verified 04/30/22 02:13 Vomiting niacin Allergy HIVES Verified 04/30/22 02:13 isosorbide [From Imdur] AdvReac Headache Verified 04/30/22 02:13 METALS Allergy Intermediate RASH Uncoded 04/30/22 02:13 REFALEN AdvReac Intermediate FLU LIKE Uncoded 04/30/22 02:13 SYMPTOMS Vital Signs Vital Signs - 24 hr 04/29/22 12:57 04/29/22 14:56 04/29/22 15:02 Temperature 36.1 C L Pulse Rate 62 64 66 Respiratory Rate 16 23 H 20 Blood Pressure 90/52 L 127/52 L 126/44 L Pulse Oximetry 99 100 100 Oxygen Delivery Room Air 04/29/22 15:32 04/29/22 17:50 04/29/22 18:44 Temperature 36.7 C Pulse Rate 68 63 59 L Respiratory Rate 20 16 16 Blood Pressure 117/44 L 136/45 L 147/50 H Pulse Oximetry 96 97 100 Oxygen Delivery 04/29/22 19:43 04/29/22 20:00 04/30/22 04:00 Temperature 36.6 C Pulse Rate 66 66 65 Respiratory Rate 16 16 Blood Pressure 133/47 L Pulse Oximetry 99 99 Oxygen Delivery Room Air 04/30/22 04:55 04/30/22 08:00 04/30/22 09:56 Temperature 36.9 C Pulse Rate 67 67 Respiratory Rate 20 Blood Pressure 120/60 Pulse Oximetry 98 95 Oxygen Delivery Room Air Results Labs CBC & Chem 7: 04/30/22 05:11 04/30/22 05:11 Labs: Short CBC 04/29/22 04/30/22 Range/Units 13:35 05:11 WBC 6.5 7.5 (4.5-10.0) K/mm3 Hgb 13.1 12.0 (12.0-15.0) g/dL Hct 38.2 34.7 L (37.0-47.0) % Plt Count 195 145 L (150-375) k/mm3 BMP 04/29/22 04/30/22 13:35 05:11 Sodium 135 L 136 L Potassium 3.8 4.0 Chloride 105 109 H Carbon Dioxide 21 L 21 L BUN 16 10 D Creatinine 0.80 0.50 L Glucose 139 H 158 H Calcium 9.5 8.6 Cardiac Enzymes 04/29/22 Range/Units 13:35 Troponin I < 0.012 (0.000-0.034) ng/mL Liver Function 04/29/22 04/30/22 Range/Units 13:35 05:11 Total Bilirubin 0.4 0.5 (0.2-1.3) mg/dL AST 29 20 (14-36) U/L ALT 31 25 (6-35) U/L Alkaline Phosphatase 76 65 (38-126) U/L Albumin 4.3 3.6 (3.5-5.1) g/dL Urine 04/29/22 Range/U
--- NOTE | 2022-04-30 11:58 | WPDNEURCNPN ---
Assessment and Plan Assessment and plan (1) TIA (transient ischemic attack): Code(s): G45.9 - Transient cerebral ischemic attack, unspecified Status: Acute Plan unwitnessed fall with a is because of the new TIA superimposed on the previous stroke or because of the underlying weakness of the left side of the body because of the previous right hemispheric stroke unclear but definitely she had new fractures and is in severe pain evaluation will be completed to make sure that she is not predispose to new strokes and in the meantime medication will be continued as such Consult date: 04/30/22 Time Seen: 10:00 Reason for consult: Stroke versus TIA HPI: Araceli Delatorre is a 81 year old female admitted to the hospital through the emergency room where she reported subsequent to a fall resulting in the hip and wrist pain patient has been residing at the [facility] and had an unwitnessed fall, patient is extremely hard of hearing she was unsure what exactly had happened she woke up on the floor she did not hit her head or become unconscious at the time of visit to the emergency room she was complaining of left hip pain, left wrist pain and left knee pain though generally she is able to walk without assistance but she was unsure whether she will be able to walk now. Patient has been taking multiple medications which particularly included amantadine 100 mg b.i.d., aspirin 81 mg daily, citalopram 10 mg daily, donepezil 10 mg daily, insulin lisinopril 10 mg daily, and simvastatin 20 mg at night, she is a smoker by history former but not alcohol intake and initial examination revealed her to have pain in her hip with flexion of the hip and knee vital signs were stable routine lab was normal lactic acid 2.2 UA negative and radiological investigation including CT scan of the brain documenting infarct involving the right temporal occipital region likely subacute or chronic in addition to old infarct involving the right lentiform nucleus and right internal capsule as well x-ray chest was compatible with no active cardiopulmonary disease, status post sternotomy and osteopenia hip x-rays documented fractures of the superior and inferior pubic rami knee x-rays were negative and pelvic CT scan documented again acute fracture of the left superior and inferior pubic rami and left left wrist x-ray also documented commute id minimally impacted and mildly dorsally angulated intra-articular left distal radial fracture carotid Doppler study is negative routine UA abnormal but leukocyte esterase was negative Review of Systems Review of Systems: All systems reviewed & are unremarkable except as noted in HPI and below PMFSH Past Medical History Medical History (Updated 04/30/22 @ 12:11 by Anjum Horowitz MD) Dementia Diabetes Hyperlipidemia Hypertension Surgical History Surgical History (Updated 04/29/22 @ 20:31 by RASHAUN Dominguez) Hx of CABG Family History Family History (Updated 04/29/22 @ 18:49 by Jihan Jaime, RN) Other Unknown family medical history Social History Social History Smoking status: Former smoker Alcohol intake: never Substance use: never Spiritual care concerns: No Meds Home Medications and Allergies Home Medications Medication Instructions Recorded Confirmed Type [place] 3 Fish Oil 1,000 mg PO TID 04/29/22 04/29/22 History acetaminophen 325 mg capsule 650 mg PO Q6H PRN Pain (Scale 04/29/22 04/29/22 History (Tylenol) Score 1-3) amantadine HCl 100 mg tablet 100 mg PO BID 04/29/22 04/29/22 History aspirin 81 mg capsule 81 mg PO DAILY 04/29/22 04/29/22 History citalopram 10 mg tablet 10 mg PO DAILY 04/29/22 04/29/22 History dextrose-vitamin D3 10,000 PO DAILY 04/29/22 History docusate sodium 100 mg tablet 100 mg PO BID 04/29/22 04/29/22 History donepezil 10 mg tablet 10 mg PO DAILY 04/29/22 04/29/22 History dorzolamide 2 % eye drops 1 drp LEFT EYE TID 04/29/22 04/29/22 History insulin glargine 100
--- NOTE | 2022-04-30 12:25 | PM.CNOR ---
Assessment and Plan Assessment and plan (1) Distal radial fracture: Code(s): S52.509A - Unspecified fracture of the lower end of unspecified radius, initial encounter for closed fracture Status: Acute Assessment and Plan: Nonsurgical treatment with a removable cock-up wrist splint. Discussed with patient's son who will get splint and bring it in. Once we have that the splint from the ER can be discarded. (2) Pubic ramus fracture: Code(s): S32.599A - Other specified fracture of unspecified pubis, initial encounter for closed fracture Status: Acute Assessment and Plan: Stable fracture pattern that can be treated with gradual mobilization. Plan Recommend using scheduled Tylenol for treatment of fractures. Plan on re-x-ray and pelvis and left wrist in one month. Discussed with patient and her son. History of Present Illness HPI Consult date: 04/30/22 Chief complaint: Wrist fracture/pelvic fracture Narrative: 81-year-old female who took a tumble has today. She has got left hemipelvis fracture as well as left distal radius fracture. [facility] Past Medical History Medical History (Updated 04/30/22 @ 12:31 by Destin Easley MD) Dementia Diabetes Distal radial fracture Hyperlipidemia Hypertension Pubic ramus fracture Surgical History Surgical History Hx of CABG Family History Family History Other Unknown family medical history Social History Social History Smoking status: Former smoker Alcohol intake: never Substance use: never Spiritual care concerns: No Meds Home Medications and Allergies Home Medications Medication Instructions Recorded Confirmed Type [place] 3 Fish Oil 1,000 mg PO TID 04/29/22 04/29/22 History acetaminophen 325 mg capsule 650 mg PO Q6H PRN Pain (Scale 04/29/22 04/29/22 History (Tylenol) Score 1-3) amantadine HCl 100 mg tablet 100 mg PO BID 04/29/22 04/29/22 History aspirin 81 mg capsule 81 mg PO DAILY 04/29/22 04/29/22 History citalopram 10 mg tablet 10 mg PO DAILY 04/29/22 04/29/22 History dextrose-vitamin D3 10,000 PO DAILY 04/29/22 History docusate sodium 100 mg tablet 100 mg PO BID 04/29/22 04/29/22 History donepezil 10 mg tablet 10 mg PO DAILY 04/29/22 04/29/22 History dorzolamide 2 % eye drops 1 drp LEFT EYE TID 04/29/22 04/29/22 History insulin glargine 100 unit/mL (3 ea subcut 04/29/22 History mL) subcutaneous pen (Basaglar KwikPen U-100 Insulin) insulin lispro 100 unit/mL ml 04/29/22 History subcutaneous solution (Humalog U-100 Insulin) lisinopril 10 mg tablet 10 mg PO DAILY 04/29/22 04/29/22 History pantoprazole 40 mg tablet,delayed 40 mg PO DAILY 04/29/22 04/29/22 History release simvastatin 20 mg tablet 20 mg PO HS 04/29/22 04/29/22 History Allergies Allergy/AdvReac Type Severity Reaction Status Date / Time codeine Allergy Nausea and Verified 04/30/22 02:13 Vomiting niacin Allergy HIVES Verified 04/30/22 02:13 isosorbide [From Imdur] AdvReac Headache Verified 04/30/22 02:13 METALS Allergy Intermediate RASH Uncoded 04/30/22 02:13 REFALEN AdvReac Intermediate FLU LIKE Uncoded 04/30/22 02:13 SYMPTOMS Vital Signs Vital Signs - 24 hr 04/29/22 12:57 04/29/22 14:56 04/29/22 15:02 Temperature 97 F L Pulse Rate 62 64 66 Respiratory Rate 16 23 H 20 Blood Pressure 90/52 L 127/52 L 126/44 L Pulse Oximetry 99 100 100 Oxygen Delivery Room Air 04/29/22 15:32 04/29/22 17:50 04/29/22 18:44 Temperature 98.0 F Pulse Rate 68 63 59 L Respiratory Rate 20 16 16 Blood Pressure 117/44 L 136/45 L 147/50 H Pulse Oximetry 96 97 100 Oxygen Delivery 04/29/22 19:43 04/29/22 20:00 04/30/22 04:00 Temperature 98 F Pulse Rate 66 66 65 Respiratory Rate 16 16 Blood Pressure 133/47 L Pulse Oximetry 99 99 Oxygen Deliver
[2022-04-30] MEDS: IBUPROFEN IV 800 MG/200 ML 800 MG/200 ML BAG 400 MG IVPB (13:13)
[2022-04-30 16:10] LABS: Glucose Point of Care 220 mg/dl (65-105)
[2022-04-30] MEDS: INSULIN GLARGINE (*BKC) 100 UNITS/ML 37 UNITS SUB-Q (20:03)
[2022-04-30 20:08] LABS: Glucose Point of Care 210 mg/dl (65-105)
[2022-05-01] VITALS (10 sets, daily range): BP systolic 122–138; BP diastolic 51–59; PULSE 58–66; RESP 14–20; TEMP 36.4–37.2; O2SAT 93–100
[2022-05-01 05:40] LABS: Basophils Absolute Auto 0.1 K/mm3 (0.0-0.1); Basophils Percent Auto 0.8 % (0.2-1.2); Eosinophils Absolute Auto 0.4 K/mm3 (0-0.3); Eosinophils Percent Auto 5.4 % (0-4.4); Hematocrit 34.9 % (37.0-47.0); Hemoglobin 11.9 g/dL (12.0-15.0); Immature Granulocyte Absolute 0.02 K/mm3 (0.00-0.031); Immature Granulocyte Percent A 0.3 % (0-0.5); Immature Platelet Fraction Pct 8.3 % (0.9-11.2); Lymphocytes Absolute Auto 1.68 K/mm3 (0.9-3.2); Lymphocytes Percent Auto 22.8 % (18.3-44.2); Mean Corpuscular HGB Conc 34.1 g/dl (32-36); Mean Corpuscular Hemoglobin 30.7 pg (26-34); Mean Corpuscular Volume 89.9 fl (80-100); Mean Platelet Volume 11.7 fl (7.4-10.4); Monocytes Absolute Auto 0.5 K/mm3 (0.1-0.6); Monocytes Percent Auto 7.2 % (2.6-8.5); Neutrophils Absolute Auto 4.7 K/mm3 (1.3-6.7); Neutrophils Percent Auto 63.5 % (45.5-73.1); Platelet Count Result 143 k/mm3 (150-375); Red Blood Count 3.88 M/mm3 (4.2-5.4); Red Cell Distribution Width 13.4 % (11.5-14.5); White Blood Count 7.4 K/mm3 (4.5-10.0)
[2022-05-01 05:53] LABS: Alanine Aminotransferase 18 U/L (6-35); Albumin Level 3.7 g/dL (3.5-5.1); Alkaline Phosphatase 67 U/L (38-126); Anion Gap 6 mmol/L (8-16); Aspartate Amino Transferase 15 U/L (14-36); Bilirubin,Total 0.5 mg/dL (0.2-1.3); Blood Urea Nitrogen 8 mg/dL (7-17); Calcium 8.6 mg/dL (8.4-10.2); Carbon Dioxide 22 mmol/L (22-30); Chloride 108 mmol/L (98-107); Estimated CRCL calculation 56 ml/min; Estimated Glomerular Filt Rate > 60; Glucose 137 mg/dL (65-110); Sodium 136 mmol/L (137-145)
[2022-05-01 07:50] LABS: Glucose Point of Care 147 mg/dl (65-105)
[2022-05-01] MEDS: ACETAMINOPHEN 325 MG TABLET 650 MG PO (07:50)
[2022-05-01] MEDS: PANTOPRAZOLE 40 MG TABLET PO (07:55)
[2022-05-01] MEDS: DORZOLAMIDE HCL 2% OPHTH DROPS 1 DROP LEFT EYE ×3 (07:55→16:25)
[2022-05-01] MEDS: ENOXAPARIN 40 MG/0.4 ML SYRINGE SUB-Q (07:55)
[2022-05-01] MEDS: AMANTADINE HCL 100 MG CAPSULE PO ×2 (07:55→16:39)
[2022-05-01] MEDS: DOCUSATE SODIUM 100 MG CAPSULE PO ×2 (07:55→20:27)
[2022-05-01] MEDS: DONEPEZIL HCL 10 MG TABLET PO (07:58)
[2022-05-01] MEDS: lisinopriL 10 MG TABLET PO (07:58)
[2022-05-01] MEDS: CITALOPRAM HYDROBROMIDE 10 MG TABLET PO (07:58)
[2022-05-01] MEDS: ASPIRIN 81 MG ENTERIC TABLET PO (07:58)
--- NOTE | 2022-05-01 09:35 | PCPTNOTE ---
Patient refused treatment this session due to c/o pain. Patient states things are going down hill today. I thought things were getting better but I am having a lot of pain. I am not going to get up today. Educated patient on the importance of participating in therapy to improve mobility and strength. Patient did not rate pain but states it is bad and I have pain all over. RN aware of patient's c/o pain. PT will return later today to attempt PT treatment.
--- NOTE | 2022-05-01 09:42 | PCOTNOTE ---
Attempted to see patient this am, however PT transport assistant just exited room stated patient refused due to increased pain. PT transport assistant notified nurse.
--- NOTE | 2022-05-01 10:15 | PM.IMPN ---
Progress Note: A&P Assessment and Plan (1) TIA (transient ischemic attack): Code(s): G45.9 - Transient cerebral ischemic attack, unspecified Status: Acute Assessment and Plan: Head CT shows subacute or chronic infarct Neurology on board Aspirin and atorvastatin ordered PT/OT (2) Syncope and collapse: Code(s): R55 - Syncope and collapse Status: Acute Assessment and Plan: ED physician notes patient waking up on the floor Head CT does indicate a subacute or acute infarct Carotid Dopplers <50% stenosis Neurology consulted thank you for your help Echo with bubble EF of 65-70% with grade 1 diastolic dysfunction , moderate aortic valve stenosis Will be unable to get MRI due to history of cabg PT and OT ordered Aspirin and statin on board (3) Pubic ramus fracture: Code(s): S32.599A - Other specified fracture of unspecified pubis, initial encounter for closed fracture Status: Acute Assessment and Plan: Pelvis fracture noted on x-ray PT and OT Orthopedics consulted thank you for your help Care coordination consult for placement Will need rehab pain control stool softeners Give one dose of Caldolor 800mg IV Will need follow up xrays in 1 month (4) Distal radial fracture: Code(s): S52.509A - Unspecified fracture of the lower end of unspecified radius, initial encounter for closed fracture Status: Acute Assessment and Plan: Currently in a wrap Ortho has been consulted Will need rehab placement pain control toradol and norco Care coordination consult Secondary to fall PT and OT evaluation (5) Fall: Code(s): W19.XXXA - Unspecified fall, initial encounter Status: Acute Assessment and Plan: See above PT and OT (6) Hypertension: Code(s): I10 - Essential (primary) hypertension Status: Acute Assessment and Plan: Current blood pressure 131/51 Continue home lisinopril Trend blood pressure Adjust therapy as indicated (7) Diabetes: Code(s): E11.9 - Type 2 diabetes mellitus without complications Status: Acute Assessment and Plan: Current glucose 161 Continue home Lantus 37 units at night Insulin sliding scale Accu-Cheks AC and HS Diabetic diet Trend glucose Adjust therapy as indicated (8) Hyperlipidemia: Code(s): E78.5 - Hyperlipidemia, unspecified Status: Acute Assessment and Plan: Continue home simvastatin 20 mg p.o. at night AST/ALT 20/25 (9) Dementia: Code(s): F03.90 - Unspecified dementia without behavioral disturbance Status: Acute Assessment and Plan: Continue home meds Trend mental status Adjust therapy as indicated Time Spent With Patient Time with patient: Greater than 35 minutes Subjective Date/time seen: 05/01/22 10:15 Interval history: 05/01/22 10:15 Patient was in bed she looked very flushed today however she stated that she has been and a lot of pain. She currently rates her pain at an 8 out 10 and states that with any movement she does have pain. She denies any chest pain, shortness a breath, nausea, vomiting, diarrhea, constipation. She does complain of a little weakness however PT and OT are going to work with her and I told her that she should get the chair. 04/30/22 1130 Patient stated that she is having a lot of pain today a 5/10 however she stated it is not as bad as it was. Her son was also present and they were talking her discharge from the hospital. Patient denies any chest pain, shortness of breath, diarrhea, constipation, weakness, fatigue, sweats, fevers, chills. Patient stated that her pain in her hip is okay as long she does not move it. She is more complaining about the pain in her wrist. It does appears if the patient did have a subacute stroke. Awaiting Neurology for
--- NOTE | 2022-05-01 10:15 | P.PNIM_ITS ---
Progress Note: A&P Assessment and Plan (1) TIA (transient ischemic attack): Code(s): G45.9 - Transient cerebral ischemic attack, unspecified Status: Acute Assessment and Plan: * Head CT shows subacute or chronic infarct * Neurology on board * Aspirin and atorvastatin ordered * PT/OT (2) Syncope and collapse: Code(s): R55 - Syncope and collapse Status: Acute Assessment and Plan: * ED physician notes patient waking up on the floor * Head CT does indicate a subacute or acute infarct * Carotid Dopplers <50% stenosis * Neurology consulted thank you for your help * Echo with bubble EF of 65-70% with grade 1 diastolic dysfunction , moderate aortic valve stenosis * Will be unable to get MRI due to history of cabg * PT and OT ordered * Aspirin and statin on board (3) Pubic ramus fracture: Code(s): S32.599A - Other specified fracture of unspecified pubis, initial encounter for closed fracture Status: Acute Assessment and Plan: * Pelvis fracture noted on x-ray * PT and OT * Orthopedics consulted thank you for your help * Care coordination consult for placement * Will need rehab * pain control * stool softeners * Give one dose of Caldolor 800mg IV Will need follow up xrays in 1 month (4) Distal radial fracture: Code(s): S52.509A - Unspecified fracture of the lower end of unspecified radius, initial encounter for closed fracture Status: Acute Assessment and Plan: * Currently in a wrap * Ortho has been consulted * Will need rehab placement * pain control toradol and norco * Care coordination consult * Secondary to fall * PT and OT evaluation (5) Fall: Code(s): W19.XXXA - Unspecified fall, initial encounter Status: Acute Assessment and Plan: * See above * PT and OT (6) Hypertension: Code(s): I10 - Essential (primary) hypertension Status: Acute Assessment and Plan: * Current blood pressure 131/51 * Continue home lisinopril * Trend blood pressure * Adjust therapy as indicated (7) Diabetes: Code(s): E11.9 - Type 2 diabetes mellitus without complications Status: Acute Assessment and Plan: * Current glucose 161 * Continue home Lantus 37 units at night * Insulin sliding scale * Accu-Cheks AC and HS * Diabetic diet * Trend glucose * Adjust therapy as indicated (8) Hyperlipidemia: Code(s): E78.5 - Hyperlipidemia, unspecified Status: Acute Assessment and Plan: * Continue home simvastatin 20 mg p.o. at night * AST/ALT (9) Dementia: Code(s): F03.90 - Unspecified dementia without behavioral disturbance Status: Acute Assessment and Plan: * Continue home meds * Trend mental status * Adjust therapy as indicated Time Spent With Patient Time with patient: Greater than 35 minutes Subjective Date/time seen: 05/01/22 10:15 Interval history: 05/01/22 10:15 Patient was in bed she looked very flushed today however she stated that she has been and a lot of pain. She currently rates her pain at an 8 out 10 and states that with any movement she does have pain. She denies any chest pain, shortness a breath, nausea, vomiting, diarrhea, constipation. She does
[2022-05-01] MEDS: KETOROLAC 15 MG/ML VIAL (*BKC) IV PUSH (11:12)
[2022-05-01 11:19] LABS: Glucose Point of Care 164 mg/dl (65-105)
--- NOTE | 2022-05-01 12:23 | PM.PNORT ---
Progress Note: A&P Assessment and Plan (1) Pubic ramus fracture: Code(s): S32.599A - Other specified fracture of unspecified pubis, initial encounter for closed fracture Status: Acute Assessment and Plan: 81-year-old female with a pubic rami fracture. I stressed the importance of getting up and mobilizing with a cane in the right hand with therapy today. She is aware this and will attempt once PT returns this afternoon. She has had some stronger pain medication and states she is feeling better. (2) Distal radial fracture: Code(s): S52.509A - Unspecified fracture of the lower end of unspecified radius, initial encounter for closed fracture Status: Acute Assessment and Plan: Splint of the left upper extremity can come off once the removable wrist splint is available. Plan Plan to follow-up in 1 month with new x-rays of the left wrist and pelvis. Subjective Subjective Date/Time Seen: 05/01/22 12:23 Principal diagnosis: Wrist fracture/pelvic fracture Interval history: 81-year-old female with left hemipelvis fracture as well as left distal radius fracture. She states she is feeling better after having stronger pain medication. Left wrist still in place and she is aware that this can come off once her removable wrist splint is brought by her son. Review of Systems Review of Systems: All systems reviewed & are unremarkable except as noted in HPI and below Exam Const: General: comfortable and no acute distress Resp: Effort & Inspection: normal respiratory effort Skin: General skin exam: normal color and no rashes or lesions noted Neuro: Sensory Exam: normal sensation Extrem: Other: Exam of left hand reveals full motion of the fingers. No numbness or tingling. Splint intact. Neurovascular status of the left upper extremity is unremarkable. Left hip mobility does increase pain into the groin and buttock. No numbness or tingling. Neurovascular status of the left lower extremity is unremarkable. Psych: Mental Status: mental status grossly normal Objective Data Vital Signs Vital Signs: Vital Signs - 24 hr 04/30/22 13:14 04/30/22 13:14 04/30/22 14:00 Temperature 97.6 F Pulse Rate 66 Respiratory Rate 16 Blood Pressure 111/46 L Pulse Oximetry 100 Oxygen Delivery Room Air Room Air 04/30/22 16:00 04/30/22 19:31 04/30/22 20:00 Temperature 97.9 F Pulse Rate 60 59 L 62 Respiratory Rate 20 Blood Pressure 122/52 L Pulse Oximetry 98 Oxygen Delivery 04/30/22 21:14 04/30/22 21:16 04/30/22 21:19 Temperature 97.6 F Pulse Rate 63 Respiratory Rate 16 Blood Pressure 134/56 L 134/56 L 147/79 H Pulse Oximetry 97 Oxygen Delivery 04/30/22 21:22 05/01/22 00:00 05/01/22 04:00 Temperature Pulse Rate 58 L 59 L Respiratory Rate Blood Pressure 133/60 Pulse Oximetry Oxygen Delivery 05/01/22 05:47 05/01/22 07:49 Temperature 99 F Pulse Rate 62 Respiratory Rate 20 Blood Pressure 131/51 L Pulse Oximetry 96 Oxygen Delivery Room Air Intake/Output Intake/Output: Intake & Output 04/28/22 04/29/22 04/30/22 05/01/22 23:59 23:59 23:59 23:59 Intake Total 1000 580 360 Output Total 40 1750 375 Balance 960 -1170 -15 Meds/Results Medications: Active Medications Generic Name Dose Route Start Last Admin Trade Name Freq PRN Reason Stop Dose Admin Acetaminophen 650 mg 04/29/22 20:39 05/01/22 07:50 Acetaminophen 325 Mg Tablet PO 650 mg Q6H PRN Administration Pain (Scale Score 1-3) Hydrocodone Bitart/Acetaminophen 1 tab 05/01/22 09:56 Hydrocodone/Acetaminophen (*Crx) 5-325 Mg Tablet PO Q4H PRN Pain Rated 4-10 Amantadine HCl 100 mg 04/30/22 09:00 05/01/22 07:55 Amantadine Hcl 100 Mg Capsule PO 100 mg BID REMEDIOS Administration Aspirin 81 mg 04/30/22 09:00 05/01/22 07:58 Aspirin 81 Mg Enteric Tablet PO 81 mg QAM REMEDIOS Administration Citalopram Hydrobromide
[2022-05-01] MEDS: HYDROcodone/acetaminophen (*CRX) 5-325 MG TABLET 1 TAB PO ×2 (15:36→20:27)
[2022-05-01 16:19] LABS: Glucose Point of Care 172 mg/dl (65-105)
[2022-05-01] MEDS: SIMVASTATIN 20 MG TABLET PO (20:27)
[2022-05-01] MEDS: INSULIN GLARGINE (*BKC) 100 UNITS/ML 37 UNITS SUB-Q (20:28)
[2022-05-01 21:40] LABS: Glucose Point of Care 126 mg/dl (65-105)
[2022-05-02] VITALS: PULSE 56
[2022-05-02] MEDS: HYDROcodone/acetaminophen (*CRX) 5-325 MG TABLET 1 TAB PO ×2 (03:52→09:19)
[2022-05-02 04:00] VITALS: PULSE 53
[2022-05-02 04:50] VITALS: BP 129/58; PULSE 55; RESP 18; TEMP 36.6; O2SAT 100
[2022-05-02 05:56] LABS: Basophils Absolute Auto 0.1 K/mm3 (0.0-0.1); Basophils Percent Auto 0.8 % (0.2-1.2); Eosinophils Absolute Auto 0.4 K/mm3 (0-0.3); Eosinophils Percent Auto 5.3 % (0-4.4); Hematocrit 34.5 % (37.0-47.0); Hemoglobin 11.7 g/dL (12.0-15.0); Immature Granulocyte Absolute 0.03 K/mm3 (0.00-0.031); Immature Granulocyte Percent A 0.4 % (0-0.5); Immature Platelet Fraction Pct 8.5 % (0.9-11.2); Lymphocytes Absolute Auto 1.71 K/mm3 (0.9-3.2); Lymphocytes Percent Auto 23.8 % (18.3-44.2); Mean Corpuscular HGB Conc 33.9 g/dl (32-36); Mean Corpuscular Hemoglobin 30.4 pg (26-34); Mean Corpuscular Volume 89.6 fl (80-100); Mean Platelet Volume 11.9 fl (7.4-10.4); Monocytes Absolute Auto 0.5 K/mm3 (0.1-0.6); Monocytes Percent Auto 7.5 % (2.6-8.5); Neutrophils Absolute Auto 4.5 K/mm3 (1.3-6.7); Neutrophils Percent Auto 62.2 % (45.5-73.1); Platelet Count Result 148 k/mm3 (150-375); Red Blood Count 3.85 M/mm3 (4.2-5.4); Red Cell Distribution Width 13.4 % (11.5-14.5); White Blood Count 7.2 K/mm3 (4.5-10.0)
[2022-05-02 06:09] LABS: Alanine Aminotransferase 16 U/L (6-35); Albumin Level 3.8 g/dL (3.5-5.1); Alkaline Phosphatase 63 U/L (38-126); Anion Gap 5 mmol/L (8-16); Aspartate Amino Transferase 18 U/L (14-36); Bilirubin,Total 0.7 mg/dL (0.2-1.3); Blood Urea Nitrogen 12 mg/dL (7-17); Calcium 8.7 mg/dL (8.4-10.2); Carbon Dioxide 23 mmol/L (22-30); Chloride 106 mmol/L (98-107); Estimated CRCL calculation 56 ml/min; Estimated Glomerular Filt Rate > 60; Glucose 113 mg/dL (65-110); Magnesium 1.9 mg/dL (1.6-2.3); Potassium 4.1 mmol/L (3.4-5.0); Sodium 134 mmol/L (137-145)
[2022-05-02 07:43] LABS: Glucose Point of Care 110 mg/dl (65-105)
[2022-05-02 08:00] VITALS: PULSE 65
--- NOTE | 2022-05-02 09:15 | PM.DS ---
DS: Admitting Diagnosis Discharge Date 05/02/22 0915 Admitting Diagnosis Pelvic fracture, wrist fracture, subacute stroke DS: Discharge Diagnosis Discharge Diagnosis (1) TIA (transient ischemic attack): Code(s): G45.9 - Transient cerebral ischemic attack, unspecified Status: Acute Assessment and Plan: Head CT shows subacute or chronic infarct Neurology on board Aspirin and atorvastatin ordered PT/OT (2) Syncope and collapse: Code(s): R55 - Syncope and collapse Status: Acute Assessment and Plan: ED physician notes patient waking up on the floor Head CT does indicate a subacute or acute infarct Carotid Dopplers <50% stenosis Neurology consulted thank you for your help Echo with bubble EF of 65-70% with grade 1 diastolic dysfunction , moderate aortic valve stenosis Will be unable to get MRI due to history of cabg PT and OT ordered Aspirin and statin on board (3) Pubic ramus fracture: Code(s): S32.599A - Other specified fracture of unspecified pubis, initial encounter for closed fracture Status: Acute Assessment and Plan: Pelvis fracture noted on x-ray PT and OT Orthopedics consulted thank you for your help Care coordination consult for placement Will need rehab pain control stool softeners Give one dose of Caldolor 800mg IV Will need follow up xrays in 1 month (4) Distal radial fracture: Code(s): S52.509A - Unspecified fracture of the lower end of unspecified radius, initial encounter for closed fracture Status: Acute Assessment and Plan: Currently in a wrap Ortho has been consulted Will need rehab placement pain control toradol and norco Care coordination consult Secondary to fall PT and OT evaluation (5) Fall: Code(s): W19.XXXA - Unspecified fall, initial encounter Status: Acute Assessment and Plan: See above PT and OT (6) Hypertension: Code(s): I10 - Essential (primary) hypertension Status: Acute Assessment and Plan: Current blood pressure 129/58 Continue home lisinopril Trend blood pressure Adjust therapy as indicated (7) Diabetes: Code(s): E11.9 - Type 2 diabetes mellitus without complications Status: Acute Assessment and Plan: Current glucose 103 Continue home Lantus 37 units at night Insulin sliding scale Accu-Cheks AC and HS Diabetic diet Trend glucose Adjust therapy as indicated (8) Hyperlipidemia: Code(s): E78.5 - Hyperlipidemia, unspecified Status: Acute Assessment and Plan: Continue home simvastatin 20 mg p.o. at night AST/ALT (9) Dementia: Code(s): F03.90 - Unspecified dementia without behavioral disturbance Status: Acute Assessment and Plan: Continue home meds Trend mental status Adjust therapy as indicated DS: Summary Hospital Course Hospital Course: Patient is an 81-year-old female with past medical history of CVA, CABG, dementia, diabetes who presented to the ED after a syncopal episode. CT of the brain showed subacute or chronic infarct neurology was consulted and patient was continued on her aspirin and atorvastatin. Patient did note to have pubic rami fractures x2 a wrist fracture. Orthopedics was consulted and patient has been worked with PT and OT and is able to move around. Patient was worked up for syncope and carotid Dopplers were less than 50% stenosed echo showed EF was 60-70% a grade 1 diastolic dysfunction and moderate aortic valve stenosis. Patient was unable to get the MRI due to her CABG. Patient has been with PT OT and has been successfully been around a getting in the chair. Labs have remained stable throughout the entire stay. Vital signs are also stable. Patient stable for discharge at this time. Patient will be going to rehab for further strength
--- NOTE | 2022-05-02 09:15 | P.DS_ITS ---
DS: Admitting Diagnosis Discharge Date 05/02/22 0915 Admitting Diagnosis Pelvic fracture, wrist fracture, subacute stroke DS: Discharge Diagnosis Discharge Diagnosis (1) TIA (transient ischemic attack): Code(s): G45.9 - Transient cerebral ischemic attack, unspecified Status: Acute Assessment and Plan: * Head CT shows subacute or chronic infarct * Neurology on board * Aspirin and atorvastatin ordered * PT/OT (2) Syncope and collapse: Code(s): R55 - Syncope and collapse Status: Acute Assessment and Plan: * ED physician notes patient waking up on the floor * Head CT does indicate a subacute or acute infarct * Carotid Dopplers <50% stenosis * Neurology consulted thank you for your help * Echo with bubble EF of 65-70% with grade 1 diastolic dysfunction , moderate aortic valve stenosis * Will be unable to get MRI due to history of cabg * PT and OT ordered * Aspirin and statin on board (3) Pubic ramus fracture: Code(s): S32.599A - Other specified fracture of unspecified pubis, initial encounter for closed fracture Status: Acute Assessment and Plan: * Pelvis fracture noted on x-ray * PT and OT * Orthopedics consulted thank you for your help * Care coordination consult for placement * Will need rehab * pain control * stool softeners * Give one dose of Caldolor 800mg IV Will need follow up xrays in 1 month (4) Distal radial fracture: Code(s): S52.509A - Unspecified fracture of the lower end of unspecified radius, initial encounter for closed fracture Status: Acute Assessment and Plan: * Currently in a wrap * Ortho has been consulted * Will need rehab placement * pain control toradol and norco * Care coordination consult * Secondary to fall * PT and OT evaluation (5) Fall: Code(s): W19.XXXA - Unspecified fall, initial encounter Status: Acute Assessment and Plan: * See above * PT and OT (6) Hypertension: Code(s): I10 - Essential (primary) hypertension Status: Acute Assessment and Plan: * Current blood pressure 129/58 * Continue home lisinopril * Trend blood pressure * Adjust therapy as indicated (7) Diabetes: Code(s): E11.9 - Type 2 diabetes mellitus without complications Status: Acute Assessment and Plan: * Current glucose 103 * Continue home Lantus 37 units at night * Insulin sliding scale * Accu-Cheks AC and HS * Diabetic diet * Trend glucose * Adjust therapy as indicated (8) Hyperlipidemia: Code(s): E78.5 - Hyperlipidemia, unspecified Status: Acute Assessment and Plan: * Continue home simvastatin 20 mg p.o. at night * AST/ALT (9) Dementia: Code(s): F03.90 - Unspecified dementia without behavioral disturbance Status: Acute Assessment and Plan: * Continue home meds * Trend mental status * Adjust therapy as indicated DS: Summary Hospital Course Hospital Course: Patient is an 81-year-old female with past medical history of CVA, CABG, dementia, diabetes who presented to the ED after a syncopal episode. CT of the brain showed subacute or chronic infarct neurology was consulted and patient was continued on her aspirin and atorvastatin.
[2022-05-02] MEDS: AMANTADINE HCL 100 MG CAPSULE PO (09:18)
[2022-05-02] MEDS: PANTOPRAZOLE 40 MG TABLET PO (09:18)
[2022-05-02] MEDS: DOCUSATE SODIUM 100 MG CAPSULE PO (09:18)
[2022-05-02] MEDS: ASPIRIN 81 MG ENTERIC TABLET PO (09:18)
[2022-05-02] MEDS: DONEPEZIL HCL 10 MG TABLET PO (09:18)
[2022-05-02] MEDS: CITALOPRAM HYDROBROMIDE 10 MG TABLET PO (09:18)
[2022-05-02] MEDS: ENOXAPARIN 40 MG/0.4 ML SYRINGE SUB-Q (09:18)
[2022-05-02] MEDS: lisinopriL 10 MG TABLET PO (09:19)
[2022-05-02] MEDS: DORZOLAMIDE HCL 2% OPHTH DROPS 1 DROP LEFT EYE ×2 (09:20→12:02)
--- NOTE | 2022-05-02 10:00 | PCOTNOTE ---
Attempted to see pt this AM, with pt. refusing any ADLs or functional activities on this date due to pain despite education of why therapy is important to participate in. Will continue plan of care tomorrow.
[2022-05-02] MEDS: BISACODYL 5 MG TABLET EC PO (10:14)
[2022-05-02 10:35] LABS: EDCOVIDSCREEN Negative (Negative)
[2022-05-02 11:53] LABS: Glucose Point of Care 133 mg/dl (65-105)
--- NOTE | 2022-05-02 12:29 | PCPTNOTE ---
Patient refused treatment in A.M. due to c/o pain. Patient states I am not going to do therapy now! I have pain all over! PT will follow up this afternoon.
== END 2022-05-02 13:00 | DRG 69 ==
LOC: ANHED 14:05 → ANH2MED 17:56
PROVIDERS: Physician Assistant; Admitting Provider Student in an Organized Health Care Education/Training Program; Emergency Provider Emergency Medicine; PCP Family Medicine; Visit Provider Nurse Practitioner
DX: G45.9 Transient cerebral ischemic attack, unspecified (principal); S32.89XA Fracture of other parts of pelvis, initial encounter for closed fracture; S52.572A Other intraarticular fracture of lower end of left radius, initial encounter for closed fracture; I69.354 Hemiplegia and hemiparesis following cerebral infarction affecting left non-dominant side; Z20.822 Contact with and (suspected) exposure to COVID-19; R55 Syncope and collapse; I35.0 Nonrheumatic aortic (valve) stenosis; W19.XXXA Unspecified fall, initial encounter; I10 Essential (primary) hypertension; E11.9 Type 2 diabetes mellitus without complications; E78.5 Hyperlipidemia, unspecified; F03.90 Unspecified dementia, unspecified severity, without behavioral disturbance, psychotic disturbance, mood disturbance, and anxiety; Z87.891 Personal history of nicotine dependence; Z95.1 Presence of aortocoronary bypass graft; Z79.899 Other long term (current) drug therapy; Z79.4 Long term (current) use of insulin; Z79.82 Long term (current) use of aspirin
CPT/HCPCS: 36415; 51701; 51702; 70450; 71045; 72192; 73110; 73502; 73560; 80053; 81001; 82948; 83605; 83735; 84484; 85025; 85055; 87426; 93005; 93880; 96360; 96375; 97161; 97165; 97530; 97535; 99285; A9270; C8929; C9803; J1650; J1741; J1815; J1885; J7030; Q9957

== ENCOUNTER 2022-05-20 08:23 | Emergency (ER) | payer MEDICARE, SELFPAY ==
--- NOTE | ~2022-05-20 | XR_ITS ---
EXAMINATION: XR chest 1V portable INDICATION: Behavioral abnormality TECHNIQUE: Portable AP chest at 0912 hours COMPARISON: 04/29/2022 FINDINGS: The lungs are free of acute opacities. No pleural effusion or pneumothorax. The cardiomedia stinal silhouette is normal. Median sternotomy wires are consistent with prior cardiac surgery. IMPRESSION: 1. No acute cardiopulmonary abnormality. Reviewed, dictated and finalized at location B.
[2022-05-20 08:26] VITALS: BP 135/86; PULSE 84; RESP 13; TEMP 36.7; O2SAT 98
[2022-05-20 09:07] LABS: Glucose Point of Care 219 mg/dl (65-105)
[2022-05-20 09:20] LABS: Basophils Absolute Auto 0.1 K/mm3 (0.0-0.1); Basophils Percent Auto 1.1 % (0.2-1.2); Eosinophils Absolute Auto 0.1 K/mm3 (0-0.3); Eosinophils Percent Auto 1.5 % (0-4.4); Hematocrit 39.5 % (37.0-47.0); Hemoglobin 13.1 g/dL (12.0-15.0); Immature Granulocyte Absolute 0.01 K/mm3 (0.00-0.031); Immature Granulocyte Percent A 0.2 % (0-0.5); Lymphocytes Absolute Auto 1.41 K/mm3 (0.9-3.2); Lymphocytes Percent Auto 22.8 % (18.3-44.2); Mean Corpuscular HGB Conc 33.2 g/dl (32-36); Mean Corpuscular Hemoglobin 29.9 pg (26-34); Mean Corpuscular Volume 90.2 fl (80-100); Mean Platelet Volume 10.8 fl (7.4-10.4); Monocytes Absolute Auto 0.5 K/mm3 (0.1-0.6); Monocytes Percent Auto 7.6 % (2.6-8.5); Neutrophils Absolute Auto 4.1 K/mm3 (1.3-6.7); Neutrophils Percent Auto 66.8 % (45.5-73.1); Platelet Count Result 225 k/mm3 (150-375); Red Blood Count 4.38 M/mm3 (4.2-5.4); Red Cell Distribution Width 12.8 % (11.5-14.5); White Blood Count 6.2 K/mm3 (4.5-10.0)
[2022-05-20 09:21] LABS: Appearance Urine Slightly Cloudy (Clear); Bilirubin Urine 2+ (Negative); Blood Urine Negative (Negative); Glucose Urine UA Trace mg/dL (Negative); Ketones Urine 3+ mg/dL (Negative); Leukocyte Esterase Ur Negative LEU/UL (Negative); Nitrate Urine Negative (Negative); Protein Urine 1+ mg/dL (Negative); Specific Grav Ur >= 1.030 (1.001-1.035); pH Urine 5.5 (5.0-9.0)
[2022-05-20 09:26] LABS: Add Urine Microscopic? YES; Calcium Oxalate Crystals Urine Many /hpf; Color Urine Dark Yellow (Yellow); Mucus Urine Heavy /lpf; RBC Urine 21-50 /hpf (0-2); Squamous Epithelial Cell Urine Rare /hpf (Few)
[2022-05-20 09:29] LABS: Alanine Aminotransferase 12 U/L (6-35); Albumin Level 4.4 g/dL (3.5-5.1); Alkaline Phosphatase 265 U/L (38-126); Anion Gap 11 mmol/L (8-16); Aspartate Amino Transferase 15 U/L (14-36); Bilirubin,Total 0.6 mg/dL (0.2-1.3); Blood Urea Nitrogen 16 mg/dL (7-17); Calcium 9.4 mg/dL (8.4-10.2); Carbon Dioxide 22 mmol/L (22-30); Chloride 103 mmol/L (98-107); Estimated CRCL calculation 46 ml/min; Estimated Glomerular Filt Rate > 60; Glucose 226 mg/dL (65-110); Potassium 3.9 mmol/L (3.4-5.0); Sodium 136 mmol/L (137-145)
[2022-05-20 09:45] LABS: Ethanol < 10 mg/dL (<10)
[2022-05-20 09:57] VITALS: BP 181/73; PULSE 85; RESP 18; O2SAT 99
[2022-05-20 10:00] LABS: Amphetamine Screen Urine Negative (Negative); Barbiturate Screen Urine Negative (Negative); Benzodiazepines Screen Urine Negative (Negative); Cannabinoid Screen Urine Negative (Negative); Cocaine Screen Urine Negative (Negative); Methadone Screen Urine Negative (Negative); Opiate Screen Urine Negative (Negative); Phencyclidine Screen Urine Negative (Negative)
--- NOTE | 2022-05-20 11:12 | ED.GENADULT ---
HPI - General Adult General Chief complaint: Unspecified Stated complaint: poss uti symptoms Time Seen by Provider: 05/20/22 08:35 History of Present Illness HPI narrative: 81-year-old female who is presenting from [facility] for increased aggressive behavior, her son was worried that she may have a UTI. Patient denies any symptoms, no fevers or chills, no increased urinary frequency or dysuria, suprapubic or flank pain. She is upset that she is at the [facility] and that she cannot go home Related Data Home Medications Medication Instructions Recorded Confirmed [place] 3 Fish Oil 1,000 mg PO TID 04/29/22 04/29/22 acetaminophen 325 mg capsule 650 mg PO Q6H PRN Pain (Scale 04/29/22 04/29/22 (Tylenol) Score 1-3) amantadine HCl 100 mg tablet 100 mg PO BID 04/29/22 04/29/22 aspirin 81 mg capsule 81 mg PO DAILY 04/29/22 04/29/22 citalopram 10 mg tablet 10 mg PO DAILY 04/29/22 04/29/22 dextrose-vitamin D3 10,000 PO DAILY 04/29/22 docusate sodium 100 mg tablet 100 mg PO BID 04/29/22 04/29/22 donepezil 10 mg tablet 10 mg PO DAILY 04/29/22 04/29/22 dorzolamide 2 % eye drops 1 drp LEFT EYE TID 04/29/22 04/29/22 lisinopril 10 mg tablet 10 mg PO DAILY 04/29/22 04/29/22 pantoprazole 40 mg tablet,delayed 40 mg PO DAILY 04/29/22 04/29/22 release simvastatin 20 mg tablet 20 mg PO HS 04/29/22 04/29/22 Allergies Allergy/AdvReac Type Severity Reaction Status Date / Time codeine Allergy Nausea and Verified 05/20/22 08:47 Vomiting niacin Allergy HIVES Verified 05/20/22 08:47 isosorbide [From Imdur] AdvReac Headache Verified 05/20/22 08:47 METALS Allergy Intermediate RASH Uncoded 05/20/22 08:47 REFALEN AdvReac Intermediate FLU LIKE Uncoded 05/20/22 08:47 SYMPTOMS Review of Systems Review of Systems: CONST: No fever. HEENT: No sore throat C/V: No chest pain RESP: No cough GI: no abdominal pain : No dysuria. M/S: No joint pain. SKIN: No rash. NEURO: [No headache or focal numbness or weakness] PSYCH: [No depression] [facility] Past Medical History Medical History Dementia Diabetes Distal radial fracture Hyperlipidemia Hypertension Pubic ramus fracture Surgical History Surgical History Hx of CABG Family History Family History Other Unknown family medical history Social History Social History Smoking status: Former smoker Alcohol intake: never Substance use: never Spiritual care concerns: No Exam Narrative: EXAMINATION OF ORGAN SYSTEMS/BODY AREAS: Constitutional: Vital signs per nursing GENERAL:[No acute distress, non-toxic appearing.] HEAD: Normal with no signs of head trauma. EYES: EOMI, conjunctiva normal ENT: Hearing grossly intact LUNGS: Nonlabored breathing. HEART: [Regular rate and rhythm] ABD: [Soft], [nontender to palpation], no flank pain EXT: Normal range of motion SKIN: [No rashes or lesions.] NEURO: [Alert and oriented x 3. No gross focal sensory or strength deficits.] PSYCH: Normal affect Course Vital Signs Vital signs: Vital Signs Temperature 98.0 F 05/20/22 08:26 Pulse Rate 84 05/20/22 08:26 Respiratory Rate 13 05/20/22 08:26 Blood Pressure 135/86 05/20/22 08:26 Pulse Oximetry 98 05/20/22 08:26 Oxygen Delivery Room Air 05/20/22 08:26 Temperature 98.0 F 05/20/22 08:26 Pulse Rate 80 05/20/22 11:50 Respiratory Rate 17 05/20/22 11:50 Blood Pressure 147/82 H 05/20/22 11:50 Pulse Oximetry 100 05/20/22 11:50 Oxygen Delivery Room Air 05/20/22 08:26 Medical Decision Making MDM Narrative Medical decision making narrative: 81-year-old female presenting because her son thought that she may have a UTI even though she has no symptoms and is at her baseline mental status, vital signs stable, exam shows angry patient, labs nota
--- NOTE | 2022-05-20 11:13 | PCCCNOTE ---
Asked to evaluate possible discharge options for pt. pt has no medical condition for admission. First spoke with pt. Pt very alert but agitated. Pt wants to go home to take care of sick . Pt also very anger at son. Pt has been since 2013. Pt currently resides at [facility] due to previous fall which caused fracture of the pelvis. Pt still unstable on feet and is not a candidate to go back to [facility] in [place]. The charge nurse and Dr. Warner informed of my findings.
--- NOTE | 2022-05-20 11:24 | PC.NURSE ---
[facility] Called with no answer to give report of patient return to facility.
[2022-05-20 11:50] VITALS: BP 147/82; PULSE 80; RESP 17; O2SAT 100
== END 2022-05-20 11:51 ==
PROVIDERS: Emergency Provider Emergency Medicine; PCP Family Medicine
DX: R45.6 Violent behavior (principal); F03.90 Unspecified dementia, unspecified severity, without behavioral disturbance, psychotic disturbance, mood disturbance, and anxiety; E11.9 Type 2 diabetes mellitus without complications; E78.5 Hyperlipidemia, unspecified; I10 Essential (primary) hypertension; Z79.82 Long term (current) use of aspirin; Z95.1 Presence of aortocoronary bypass graft; Z87.891 Personal history of nicotine dependence; Z79.4 Long term (current) use of insulin; Z79.899 Other long term (current) drug therapy
CPT/HCPCS: 36415; 71045; 80053; 80307; 81001; 82948; 85025; 99283

== ENCOUNTER 2022-08-02 15:20 | Emergency (ER) | payer MEDICARE, SELFPAY ==
[2022-08-02] VITALS (12 sets, daily range): BP systolic 142–160; BP diastolic 49–78; PULSE 69–81; RESP 17–18; TEMP 36.6; O2SAT 98–100
[2022-08-02 16:20] LABS: Appearance Urine Clear (Clear); Bilirubin Urine Negative (Negative); Color Urine Yellow (Yellow); Glucose Urine UA Negative (Negative); Ketones Urine 1+ mg/dL (Negative); Leukocyte Esterase Ur Trace LEU/UL (Negative); Nitrate Urine Negative (Negative); Protein Urine 1+ mg/dL (Negative); Specific Grav Ur >= 1.030 (1.001-1.035); pH Urine 5.5 (5.0-9.0)
[2022-08-02 16:23] LABS: Add Urine Microscopic? YES; Blood Urine Trace-Intact (Negative)
[2022-08-02 16:38] LABS: Bacteria Urine Trace /hpf; Mucus Urine Rare /lpf; Squamous Epithelial Cell Urine Moderate /hpf (Few); WBC Urine 51-75 /hpf
--- NOTE | 2022-08-02 17:59 | ED.GENADULT ---
HPI - General Adult General Chief complaint: Unspecified Stated complaint: uncooperative at [place], self harm Time Seen by Provider: 08/02/22 17:18 History of Present Illness HPI narrative: This is a an 81-year-old female with history of dementia presenting ED for possible self-harm. Patient is easily confused. Her has and she intermittently cannot remember if he is or not. She has been at a custodial recently. When her family came to see her today she asked for them to take her home. When they told her they could not she became very upset and stabbed herself with a plastic fork. She was then sent to the emergency department for further evaluation. Patient is denying suicidal or homicidal ideation. She is denying auditory or visual hallucinations. When asked her about when she stabbed herself with a fork she said she got upset because she really wanted to go home. Patient notes that she has been urinating more frequently than usual. She denies any other physical complaints this time. Related Data Home Medications Medication Instructions Recorded Confirmed [place] 3 Fish Oil 1,000 mg PO TID 04/29/22 04/29/22 acetaminophen 325 mg capsule 650 mg PO Q6H PRN Pain (Scale 04/29/22 04/29/22 (Tylenol) Score 1-3) amantadine HCl 100 mg tablet 100 mg PO BID 04/29/22 04/29/22 aspirin 81 mg capsule 81 mg PO DAILY 04/29/22 04/29/22 citalopram 10 mg tablet 10 mg PO DAILY 04/29/22 04/29/22 dextrose-vitamin D3 10,000 PO DAILY 04/29/22 docusate sodium 100 mg tablet 100 mg PO BID 04/29/22 04/29/22 donepezil 10 mg tablet 10 mg PO DAILY 04/29/22 04/29/22 dorzolamide 2 % eye drops 1 drp LEFT EYE TID 04/29/22 04/29/22 lisinopril 10 mg tablet 10 mg PO DAILY 04/29/22 04/29/22 pantoprazole 40 mg tablet,delayed 40 mg PO DAILY 04/29/22 04/29/22 release simvastatin 20 mg tablet 20 mg PO HS 04/29/22 04/29/22 Allergies Allergy/AdvReac Type Severity Reaction Status Date / Time codeine Allergy Nausea and Verified 05/20/22 08:47 Vomiting niacin Allergy HIVES Verified 05/20/22 08:47 isosorbide [From Imdur] AdvReac Headache Verified 05/20/22 08:47 METALS Allergy Intermediate RASH Uncoded 05/20/22 08:47 REFALEN AdvReac Intermediate FLU LIKE Uncoded 05/20/22 08:47 SYMPTOMS Review of Systems Review of Systems: CONSTITUTIONAL: Denies night sweats. EYES: No eye pain ENT: Denies rhinorrhea CARDIOVASCULAR: Denies palpitations RESPIRATORY: Denies hemoptysis GASTROINTESTINAL: Denies hematemesis GENITOURINARY: Denies hematuria. SKIN: Denies rash MUSCULOSKELETAL: Denies myalgia. NEUROLOGIC: Denies weakness. PSYCHIATRIC: Denies delusions PMFSH Past Medical History Medical History Dementia Diabetes Distal radial fracture Hyperlipidemia Hypertension Pubic ramus fracture Surgical History Surgical History Hx of CABG Family History Family History Other Unknown family medical history Social History Social History Smoking status: Former smoker Alcohol intake: never Substance use: never Substance use type: does not use Spiritual care concerns: No Exam Narrative: APPEARANCE: No apparent distress. Patient is alert to person and place but not time. Head atraumatic. EYES: PERRLA/EOMI, NOSE: Normal no drainage NECK: Supple, Trachea midline RESPIRATORY: CTAB, No increased work of breathing. CARDIOVASCULAR: S1S2 appreciated ABDOMINAL: Soft, nontender, nondistended, MUSCULOSKELETAl: No obvious deformities NEURO: Alert. Moving 4/4 extremities SKIN:: Warm, dry. Normal color PSYCHIATRIC: Normal affect Course Vital Signs Vital signs: Vital Signs Temperature 97.8 F 08/02/22 15:27 Pulse Rate 81 08/02/22 15:27 Respiratory Rate 18 08/02/22 15:27 Blood Pressure 149/59 H
[2022-08-02] MEDS: CEPHALEXIN 500 MG CAPSULE PO (18:06)
[2022-08-02 18:38] LABS: Basophils Absolute Auto 0.1 K/mm3 (0.0-0.1); Basophils Percent Auto 0.6 % (0.2-1.2); Eosinophils Absolute Auto 0.1 K/mm3 (0-0.3); Hematocrit 40.2 % (37.0-47.0); Hemoglobin 13.6 g/dL (12.0-15.0); Immature Granulocyte Absolute 0.02 K/mm3 (0.00-0.031); Immature Granulocyte Percent A 0.3 % (0-0.5); Lymphocytes Absolute Auto 2.46 K/mm3 (0.9-3.2); Lymphocytes Percent Auto 31.5 % (18.3-44.2); Mean Corpuscular HGB Conc 33.8 g/dl (32-36); Mean Corpuscular Hemoglobin 29.6 pg (26-34); Mean Corpuscular Volume 87.4 fl (80-100); Mean Platelet Volume 11.2 fl (7.4-10.4); Monocytes Absolute Auto 0.6 K/mm3 (0.1-0.6); Monocytes Percent Auto 7.8 % (2.6-8.5); Neutrophils Absolute Auto 4.6 K/mm3 (1.3-6.7); Neutrophils Percent Auto 58.8 % (45.5-73.1); Platelet Count Result 186 k/mm3 (150-375); Red Cell Distribution Width 13.6 % (11.5-14.5); White Blood Count 7.8 K/mm3 (4.5-10.0)
[2022-08-02 18:47] LABS: Anion Gap 10 mmol/L (8-16); Blood Urea Nitrogen 14 mg/dL (7-17); Calcium 10.4 mg/dL (8.4-10.2); Carbon Dioxide 26 mmol/L (22-30); Chloride 103 mmol/L (98-107); Estimated CRCL calculation 61 ml/min; Estimated Glomerular Filt Rate > 60; Glucose 112 mg/dL (65-110); Potassium 3.7 mmol/L (3.4-5.0); Sodium 139 mmol/L (137-145)
--- NOTE | 2022-08-02 19:14 | PC.NURSE ---
report called to Patsy at [facility]. [facility] called for transport
--- NOTE | 2022-08-02 19:21 | PC.NURSE ---
Report received from LINDA Ludwig. Assumed care of patient at this time.
== END 2022-08-02 21:25 ==
PROVIDERS: Emergency Provider Emergency Medicine
DX: N39.0 Urinary tract infection, site not specified (principal); F03.90 Unspecified dementia, unspecified severity, without behavioral disturbance, psychotic disturbance, mood disturbance, and anxiety; R45.88 Nonsuicidal self-harm; E11.9 Type 2 diabetes mellitus without complications; I10 Essential (primary) hypertension; E78.5 Hyperlipidemia, unspecified; Z95.1 Presence of aortocoronary bypass graft; Z87.891 Personal history of nicotine dependence; Z79.82 Long term (current) use of aspirin; Z79.4 Long term (current) use of insulin
CPT/HCPCS: 36415; 80048; 81001; 85025; 87077; 87086; 87147; 87181; 87186; 99283; A9270

== ENCOUNTER 2023-02-20 15:49 | Inpatient (IN) | payer MEDICARE, SELFPAY ==
[2023-02-20] VITALS (22 sets, daily range): BP systolic 139–161; BP diastolic 45–75; PULSE 63–81; RESP 12–22; TEMP 36.2–36.9; O2SAT 98–100; BMI 22.8
--- NOTE | ~2023-02-20 | CT_ITS ---
EXAMINATION: CT brain wo con INDICATION: Altered mental status COMPARISON: 04/29/2022 TECHNIQUE: Standard unenhanced head CT. The dose-length product (DLP) was 605.33 mGy-cm. The mA was a djusted according to patient size. Iterative reconstruction technique was employed. FINDINGS: There is no acute intraparenchymal hemorrhage. No evidence of mass lesion. No evidence of a cute infarction. 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 There is moderate periventricular and subcortical hy podensity probably related to small vessel ischemic disease. There is moderate prominence of the sulc i and ventricles related to cerebral atrophy. Intracranial calcified cerebral atherosclerosis is note d. There are no extra-axial collections. There is no mass effect or midline shift. Changes in the wilbert bes are likely from ocular lens surgery. The visualized sinuses and mastoid air cells are well aerate d. IMPRESSION: 1. Areas of prior infarction without acute intracranial abnormality. 2. Age related findings. Reviewed, dictated and finalized at location B.
[2023-02-20 16:32] LABS: Appearance Urine Clear (Clear); Bacteria Urine 1+ /hpf; Bilirubin Urine Negative (Negative); Blood Urine Negative (Negative); Color Urine Yellow (Yellow); Glucose Urine UA Negative (Negative); Ketones Urine Negative (Negative); Leukocyte Esterase Ur 2+ LEU/UL (Negative); Nitrate Urine Negative (Negative); Non Pathogenic Casts 0-2; Protein Urine Negative (Negative); RBC Urine 0-2 /hpf (0-2); Specific Grav Ur 1.012 (1.001-1.035); Squamous Epithelial Cell Urine None seen /hpf (Few); Urobilinogen Urine 0.2 mg/dL (<2.0); pH Urine 6.5 (5.0-9.0)
[2023-02-20 16:35] LABS: Add Urine Microscopic? YES
[2023-02-20 16:53] LABS: Basophils Absolute Auto 0.1 K/mm3 (0.0-0.1); Basophils Percent Auto 0.8 % (0.2-1.2); Eosinophils Absolute Auto 0.1 K/mm3 (0-0.3); Hematocrit 39.4 % (37.0-47.0); Hemoglobin 12.9 g/dL (12.0-15.0); Immature Granulocyte Absolute 0.02 K/mm3 (0.00-0.031); Immature Granulocyte Percent A 0.2 % (0-0.5); Lymphocytes Absolute Auto 2.33 K/mm3 (0.9-3.2); Lymphocytes Percent Auto 26.1 % (18.3-44.2); Mean Corpuscular HGB Conc 32.7 g/dl (32-36); Mean Corpuscular Hemoglobin 29.7 pg (26-34); Mean Corpuscular Volume 90.6 fl (80-100); Mean Platelet Volume 11.4 fl (7.4-10.4); Monocytes Absolute Auto 0.5 K/mm3 (0.1-0.6); Monocytes Percent Auto 5.1 % (2.6-8.5); Neutrophils Percent Auto 66.8 % (45.5-73.1); Platelet Count Result 183 k/mm3 (150-375); Red Blood Count 4.35 M/mm3 (4.2-5.4); Red Cell Distribution Width 13.2 % (11.5-14.5); White Blood Count 8.9 K/mm3 (4.5-10.0)
[2023-02-20 17:11] LABS: Alanine Aminotransferase 24 U/L (6-35); Albumin Level 4.9 g/dL (3.5-5.1); Alkaline Phosphatase 85 U/L (38-126); Anion Gap 7 mmol/L (8-16); Aspartate Amino Transferase 25 U/L (14-36); Bilirubin,Total 0.7 mg/dL (0.2-1.3); Blood Urea Nitrogen 12 mg/dL (7-17); Calcium 9.7 mg/dL (8.4-10.2); Carbon Dioxide 26 mmol/L (22-30); Chloride 104 mmol/L (98-107); Estimated CRCL calculation 58 ml/min; Estimated Glomerular Filt Rate > 60; Glucose 154 mg/dL (65-110); Potassium 4.4 mmol/L (3.4-5.0); Sodium 137 mmol/L (137-145)
--- NOTE | 2023-02-20 18:12 | ED.GENADULT ---
HPI - General Adult General Chief complaint: Urogenital-Female Stated complaint: AMS/poss UTI Time Seen by Provider: 02/20/23 15:56 History of Present Illness HPI narrative: 82-year-old female with history of dementia presenting to the emergency department for evaluation of altered mental status. Patient was altered and combative at her [facility]. Patient does not have recall of this episode. Patient is calm and appropriate in the emergency department. Patient denies any falls or injuries. Patient does have a history of frequent urinary tract infections. Patient does have history of diabetes Related Data Home Medications Medication Instructions Recorded Confirmed [place] 3 Fish Oil 1,000 mg PO TID 04/29/22 04/29/22 acetaminophen 325 mg capsule 650 mg PO Q6H PRN Pain (Scale 04/29/22 04/29/22 (Tylenol) Score 1-3) amantadine HCl 100 mg tablet 100 mg PO BID 04/29/22 04/29/22 aspirin 81 mg capsule 81 mg PO DAILY 04/29/22 04/29/22 citalopram 10 mg tablet 10 mg PO DAILY 04/29/22 04/29/22 dextrose-vitamin D3 10,000 PO DAILY 04/29/22 docusate sodium 100 mg tablet 100 mg PO BID 04/29/22 04/29/22 donepezil 10 mg tablet 10 mg PO DAILY 04/29/22 04/29/22 dorzolamide 2 % eye drops 1 drp LEFT EYE TID 04/29/22 04/29/22 lisinopril 10 mg tablet 10 mg PO DAILY 04/29/22 04/29/22 pantoprazole 40 mg tablet,delayed 40 mg PO DAILY 04/29/22 04/29/22 release simvastatin 20 mg tablet 20 mg PO HS 04/29/22 04/29/22 Allergies Allergy/AdvReac Type Severity Reaction Status Date / Time codeine Allergy Nausea and Verified 05/20/22 08:47 Vomiting niacin Allergy HIVES Verified 05/20/22 08:47 isosorbide [From Imdur] AdvReac Headache Verified 05/20/22 08:47 METALS Allergy Intermediate RASH Uncoded 05/20/22 08:47 REFALEN AdvReac Intermediate FLU LIKE Uncoded 05/20/22 08:47 SYMPTOMS Review of Systems Review of Systems: All systems reviewed & are unremarkable except as noted in HPI and below PMFSH Past Medical History Medical History Dementia Diabetes Distal radial fracture Hyperlipidemia Hypertension Pubic ramus fracture Surgical History Surgical History Hx of CABG Family History Family History Other Unknown family medical history Social History Social History Smoking status: Former smoker Alcohol intake: never Substance use: never Substance use type: does not use Spiritual care concerns: No Exam Narrative: APPEARANCE: Well appearing, no pain, no distress, well-nourished. HEAD: normocephalic, atraumatic. EYES: PERRLA/EOMI, conjunctivae clear. NOSE: Normal no drainage NECK: Supple. No adenopathy, no masses. RESPIRATORY: Airway patent, respirations nonlabored. Clear to auscultation bilaterally, no rales, rhonchi, wheezing. CARDIOVASCULAR: Regular rate and rhythm without murmurs rubs or gallops. ABDOMINAL: Soft, nontender, nondistended, normal bowel sounds MUSCULOSKELETAL: Moves all extremities. Strength/ROM intact, No edema, No calf tenderness. NEURO: Alert. Cranial nerves II through XII intact. Grossly intact SKIN: Warm, dry. Normal Color Course Course Emergency Course: 82-year-old female presented the emergency department for evaluation of altered mental status. Patient is more calm and appropriate in the ED. Patient is afebrile with no leukocytosis. Patient's CMP is similar to baseline. Patient's head CT was negative. Patient's UA does show evidence of urinary tract infection. Urine culture is pending and patient was started on antibiotics while in the ED. Case was discussed with hospitalist patient was accepted for admission for altered mental status and urinary tract infection. Vital Signs Vital signs: Vital Signs Pulse Rate 75 02/20/23 15:57 Respiratory Rate 16 02/20/23 15:5
--- NOTE | 2023-02-20 20:18 | PM.IMHP ---
H&P: HPI History of Present Illness Date/Time: 02/20/23 20:18 Chief Complaint: Altered mental status Narrative: This is an 82-year-old female with past medical history significant for insulin-dependent diabetes mellitus, hypertension, dyslipidemia, osteoporosis, dementia. Patient resides at a [facility] was brought for evaluation due to altered mental status. History taking is limited due to patient's dementia she states does not know why she is in the hospital she found herself in an ambulance to the hospital and does not know why preliminary workup was significant for urinalysis with numerous WBCs present. Patient is been admitted for further evaluation management and treatment. Review of Systems Review of Systems: ROS unobtainable: Yes unobtainable due to mental status (Dementia) PMFSH Past Medical History Medical History Dementia Diabetes Distal radial fracture Hyperlipidemia Hypertension Pubic ramus fracture Surgical History Surgical History Hx of CABG Family History Family History Other Unknown family medical history Social History Social History Smoking status: Former smoker Alcohol intake: never Substance use: never Substance use type: does not use Spiritual care concerns: No Meds Home Medications and Allergies Home Medications Medication Instructions Recorded Confirmed Type amantadine HCl 100 mg tablet 100 mg PO BID 04/29/22 02/20/23 History aspirin 81 mg capsule 81 mg PO DAILY 04/29/22 02/20/23 History citalopram 10 mg tablet 10 mg PO DAILY 04/29/22 02/20/23 History docusate sodium 100 mg tablet 100 mg PO BID 04/29/22 02/20/23 History donepezil 10 mg tablet 10 mg PO HS 04/29/22 02/20/23 History dorzolamide 2 % eye drops 1 drp LEFT EYE TID 04/29/22 02/20/23 History lisinopril 10 mg tablet 10 mg PO DAILY 04/29/22 02/20/23 History pantoprazole 40 mg tablet,delayed 40 mg PO DAILY 04/29/22 02/20/23 History release simvastatin 20 mg tablet 20 mg PO HS 04/29/22 02/20/23 History acetaminophen 500 mg tablet 1,000 mg PO Q6H PRN Pain 02/20/23 02/20/23 History (Acetaminophen Extra Strength) alendronate 70 mg tablet 70 mg PO WEEKLY 02/20/23 02/20/23 History cyanocobalamin (vitamin B-12) 500 500 mcg PO DAILY 02/20/23 02/20/23 History mcg tablet heparin (porcine) 5,000 unit/mL 5,000 unit subcut Q8H 02/20/23 02/20/23 History injection syringe insulin glargine 100 unit/mL (3 7 unit subcut HS 02/20/23 02/20/23 History mL) subcutaneous pen (Lantus Solostar U-100 Insulin) insulin lispro 100 unit/mL 10 unit subcut TID 02/20/23 02/20/23 History subcutaneous pen (Humalog KwikPen (U-100) Insulin) insulin lispro 100 unit/mL 1 sliding scale dose subcut QID 02/20/23 02/20/23 History subcutaneous solution (Humalog U-100 Insulin) melatonin 3 mg capsule 3 mg PO HS PRN Insomnia 02/20/23 02/20/23 History sennosides 8.6 mg tablet 8.6 mg PO DAILY PRN Constipation 02/20/23 02/20/23 History Allergies Allergy/AdvReac Type Severity Reaction Status Date / Time codeine Allergy Nausea and Verified 05/20/22 08:47 Vomiting niacin Allergy HIVES Verified 05/20/22 08:47 isosorbide [From Imdur] AdvReac Headache Verified 05/20/22 08:47 METALS Allergy Intermediate RASH Uncoded 05/20/22 08:47 REFALEN AdvReac Intermediate FLU LIKE Uncoded 05/20/22 08:47 SYMPTOMS Vital Signs Vital Signs - 24 hr 02/20/23 16:08 02/20/23 15:57 02/20/23 16:00 Temperature 98.4 F Pulse Rate 71 75 73 Respiratory Rate 12 16 19 Blood Pressure 155/60 H Pulse Oximetry 100 100 100 Oxygen Delivery Room Air 02/20/23 16:20 02/20/23 16:29 02/20/23 16:30 Temperature Pulse Rate 81 70 69 Respiratory Rate 20 13 17 Blood Pressure 139/45 L Pulse Oximetry 100 98 Oxygen [employer]
--- NOTE | 2023-02-20 20:22 | PC.NURSE ---
2020 - Attempted to call report. Spoke with chief librarian circulation department Katie. RN in a room, will call back after she gets out of a room.
--- NOTE | 2023-02-20 20:42 | ADMGEN ---
This patient, Araceli Delatorre, was admitted to [facility] Surg Room 325-01. Patient/family oriented to hospital policies and general routines including ID bracelet, bed and alarms, visiting hours, pain management, procedures, bathroom and other care routines, personal items, smoking policy, room service/diet, and visiting hours. Information on how to activate the Rapid Response Team has been discussed. Patient/Family are encouraged to report perceived risks to care and to ask questions if they do not understand what they are told or what they should do.
[2023-02-21] MEDS: AMANTADINE HCL 100 MG CAPSULE PO ×3 (01:45→21:11)
[2023-02-21] MEDS: SIMVASTATIN 20 MG TABLET PO ×2 (01:52→21:08)
[2023-02-21] MEDS: INSULIN GLARGINE (*BKC) 100 UNITS/ML 7 UNITS SUB-Q (01:54)
[2023-02-21 02:05] LABS: Glucose Point of Care 175 mg/dl (65-105)
[2023-02-21] MEDS: HEPARIN SODIUM 5,000 UNITS/ML VIAL 5000 UNITS SUB-Q ×3 (06:18→21:10)
[2023-02-21 07:00] VITALS: BP 138/48; PULSE 62; RESP 18; TEMP 35.7; O2SAT 99
[2023-02-21 08:40] LABS: Glucose Point of Care 151 mg/dl (65-105)
[2023-02-21] MEDS: INSULIN ASPART (*BKC) 100 UNITS/ML 10 UNITS SUB-Q ×3 (09:11→17:36)
[2023-02-21] MEDS: CITALOPRAM HYDROBROMIDE 10 MG TABLET PO (09:12)
[2023-02-21] MEDS: DORZOLAMIDE HCL 2% OPHTH DROPS 1 DROP LEFT EYE ×3 (09:12→17:36)
[2023-02-21] MEDS: lisinopriL 10 MG TABLET PO (09:12)
[2023-02-21] MEDS: DOCUSATE SODIUM 100 MG CAPSULE PO ×2 (09:12→21:08)
[2023-02-21] MEDS: PANTOPRAZOLE 40 MG TABLET PO (09:12)
[2023-02-21] MEDS: ASPIRIN 81 MG ENTERIC TABLET PO (09:12)
[2023-02-21] MEDS: CYANOCOBALAMIN 500 MCG TABLET PO (09:12)
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
[2023-02-21 10:01] LABS: Basophils Absolute Auto 0.1 K/mm3 (0.0-0.1); Basophils Percent Auto 1.1 % (0.2-1.2); Eosinophils Absolute Auto 0.2 K/mm3 (0-0.3); Eosinophils Percent Auto 2.6 % (0-4.4); Hematocrit 41.1 % (37.0-47.0); Hemoglobin 13.4 g/dL (12.0-15.0); Immature Granulocyte Absolute 0.02 K/mm3 (0.00-0.031); Immature Granulocyte Percent A 0.4 % (0-0.5); Lymphocytes Absolute Auto 1.74 K/mm3 (0.9-3.2); Lymphocytes Percent Auto 30.6 % (18.3-44.2); Mean Corpuscular HGB Conc 32.6 g/dl (32-36); Mean Corpuscular Hemoglobin 29.7 pg (26-34); Mean Corpuscular Volume 91.1 fl (80-100); Mean Platelet Volume 11.3 fl (7.4-10.4); Monocytes Absolute Auto 0.3 K/mm3 (0.1-0.6); Monocytes Percent Auto 4.6 % (2.6-8.5); Neutrophils Absolute Auto 3.5 K/mm3 (1.3-6.7); Neutrophils Percent Auto 60.7 % (45.5-73.1); Platelet Count Result 189 k/mm3 (150-375); Red Blood Count 4.51 M/mm3 (4.2-5.4); Red Cell Distribution Width 13.2 % (11.5-14.5); White Blood Count 5.7 K/mm3 (4.5-10.0)
[2023-02-21 10:07] LABS: Alanine Aminotransferase 24 U/L (6-35); Albumin Level 4.8 g/dL (3.5-5.1); Alkaline Phosphatase 80 U/L (38-126); Anion Gap 8 mmol/L (8-16); Aspartate Amino Transferase 26 U/L (14-36); Bilirubin,Total 0.8 mg/dL (0.2-1.3); Blood Urea Nitrogen 11 mg/dL (7-17); Calcium 9.8 mg/dL (8.4-10.2); Carbon Dioxide 25 mmol/L (22-30); Chloride 105 mmol/L (98-107); Estimated CRCL calculation 52 ml/min; Estimated Glomerular Filt Rate > 60; Glucose 128 mg/dL (65-110); Magnesium 2.2 mg/dL (1.6-2.3); Potassium 4.2 mmol/L (3.4-5.0); Sodium 138 mmol/L (137-145)
--- NOTE | 2023-02-21 10:56 | PC.NURSE ---
pt has ams and cannot sign own consent and screening form for MRI. Called pt son at [phone] and [phone] to try and get MRI screening form filled out. pt son does not have a voicemail set up to leave a message for a call back. will try to call again at a later time today.
[2023-02-21 12:06] LABS: Glucose Point of Care 165 mg/dl (65-105)
[2023-02-21 14:00] VITALS: BP 125/43; PULSE 58; RESP 16; TEMP 35.6; O2SAT 97
[2023-02-21 16:50] LABS: Glucose Point of Care 101 mg/dl (65-105)
[2023-02-21 20:35] VITALS: PULSE 78; RESP 18; O2SAT 100
[2023-02-21] MEDS: DONEPEZIL HCL 10 MG TABLET PO (21:10)
[2023-02-21 21:38] LABS: Glucose Point of Care 78 mg/dl (65-105)
[2023-02-21 21:50] VITALS: BP 151/58; PULSE 78; RESP 18; TEMP 36; O2SAT 100
[2023-02-22 06:00] VITALS: BP 119/58; PULSE 63; RESP 20; TEMP 35.9; O2SAT 98
[2023-02-22 06:10] LABS: Basophils Absolute Auto 0.1 K/mm3 (0.0-0.1); Basophils Percent Auto 1.6 % (0.2-1.2); Eosinophils Absolute Auto 0.2 K/mm3 (0-0.3); Eosinophils Percent Auto 4.6 % (0-4.4); Hematocrit 36.3 % (37.0-47.0); Hemoglobin 12.1 g/dL (12.0-15.0); Immature Granulocyte Absolute 0.02 K/mm3 (0.00-0.031); Immature Granulocyte Percent A 0.4 % (0-0.5); Lymphocytes Absolute Auto 1.65 K/mm3 (0.9-3.2); Lymphocytes Percent Auto 32.9 % (18.3-44.2); Mean Corpuscular HGB Conc 33.3 g/dl (32-36); Mean Corpuscular Hemoglobin 29.7 pg (26-34); Mean Corpuscular Volume 89.2 fl (80-100); Mean Platelet Volume 11.5 fl (7.4-10.4); Monocytes Absolute Auto 0.4 K/mm3 (0.1-0.6); Neutrophils Absolute Auto 2.7 K/mm3 (1.3-6.7); Neutrophils Percent Auto 53.5 % (45.5-73.1); Platelet Count Result 154 k/mm3 (150-375); Red Blood Count 4.07 M/mm3 (4.2-5.4); Red Cell Distribution Width 13.2 % (11.5-14.5)
[2023-02-22 06:23] LABS: Alanine Aminotransferase 22 U/L (6-35); Albumin Level 4.1 g/dL (3.5-5.1); Alkaline Phosphatase 70 U/L (38-126); Anion Gap 6 mmol/L (8-16); Aspartate Amino Transferase 23 U/L (14-36); Bilirubin,Total 0.6 mg/dL (0.2-1.3); Blood Urea Nitrogen 14 mg/dL (7-17); Carbon Dioxide 25 mmol/L (22-30); Chloride 103 mmol/L (98-107); Estimated CRCL calculation 52 ml/min; Estimated Glomerular Filt Rate > 60; Glucose 115 mg/dL (65-110); Sodium 134 mmol/L (137-145)
[2023-02-22 08:19] LABS: Glucose Point of Care 112 mg/dl (65-105)
[2023-02-22] MEDS: INSULIN ASPART (*BKC) 100 UNITS/ML 10 UNITS SUB-Q ×2 (08:39→11:42)
[2023-02-22] MEDS: CYANOCOBALAMIN 500 MCG TABLET PO (08:40)
[2023-02-22] MEDS: ASPIRIN 81 MG ENTERIC TABLET PO (08:40)
[2023-02-22] MEDS: PANTOPRAZOLE 40 MG TABLET PO (08:41)
[2023-02-22] MEDS: lisinopriL 10 MG TABLET PO (08:41)
[2023-02-22] MEDS: AMANTADINE HCL 100 MG CAPSULE PO (08:41)
[2023-02-22] MEDS: CITALOPRAM HYDROBROMIDE 10 MG TABLET PO (08:41)
[2023-02-22] MEDS: DORZOLAMIDE HCL 2% OPHTH DROPS 1 DROP LEFT EYE (08:42)
[2023-02-22] MEDS: DOCUSATE SODIUM 100 MG CAPSULE PO (08:42)
[2023-02-22] MEDS: CEFDINIR 300 MG CAPSULE PO (08:42)
--- NOTE | 2023-02-22 10:30 | P.DS_ITS ---
DS: Admitting Diagnosis Discharge Date 02/22/23 1030 Admitting Diagnosis Acute UTI DS: Discharge Diagnosis Discharge Diagnosis (1) Acute metabolic encephalopathy: Code(s): G93.41 - Metabolic encephalopathy Status: Acute Assessment and Plan: * presented the ER with mental status changes * could be related to worsening dementia, UTI, stroke * UA does appear possibly infected with 2+ leukocyte esterase, 1+ bacteria, white blood cell count 11 to 20 * antibiotics ordered * MRI cancelled since she is back to [facility] * head CT does have some chronic infarcts * seems better today possibly at patient's baseline * Appears to be at baseline, most likely related to UTI (2) Acute UTI: Code(s): N39.0 - Urinary tract infection, site not specified Status: Acute Assessment and Plan: * UA appears possibly infective with leukocyte esterase, 1+ bacteria, white blood cell count of 11 to 20 * continue Rocephin * Cultures grew Ecoli * trend urine output * Discharge with cefdinir PO for a total of 7 days (3) Dementia: Code(s): F03.90 - Unspecified dementia, unspecified severity, without behavioral disturbance, psychotic disturbance, mood disturbance, and anxiety Status: Acute Assessment and Plan: * currently appears to be at baseline * chronic and stable * Continue donepezil * Trend mood and mental status * adjust therapy as indicated (4) Hypertension: Code(s): I10 - Essential (primary) hypertension Status: Acute Assessment and Plan: * current blood pressure 119/58 * continue home lisinopril * trend blood pressure * adjust therapy as indicated (5) Hyperlipidemia: Code(s): E78.5 - Hyperlipidemia, unspecified Status: Acute Assessment and Plan: * Continue statin * chronic and stable (6) Diabetes: Code(s): E11.9 - Type 2 diabetes mellitus without complications Status: Acute Assessment and Plan: * current glucose 115 * chronic and stable * Continue Lantus and rapid acting with glargine and lispro * Accu-Cheks AC and HS * insulin sliding scale * hypoglycemia protocol * trend glucose * adjust as indicated DS: Summary Hospital Course Hospital Course: patient is an 82-year-old female with past medical history of dementia, frequent UTIs diabetes, hypertension, hyperlipidemia who presented to the ED from the [place] [facility] due to altered mental status. Upon arrival patient was noted to be confused and not know why she was here. Currently patient seems to be at her baseline which is A&O times 1-2. head CT was performed showed some chronic infarcts. UA did appear infectious mildly with 11-20 white blood cell count, 1+ bacteria 2+ leukocyte esterase. Patient was started on IV ceftriaxone and has been converted to p.o. cefdinir for total of 7 day. currently labs and vital signs remained stable. Patient also appears to be back at baseline. She also stated that she is ok and that she is ready to go. Patient is stable for discharge at this time. Time Spent with Patient Time attestation: Total time spent providing and/or coordinating discharge services: Exam Narrative: General: well-nourished, well-appearing 82-year-old female, sitting up in bed, comfortabl
--- NOTE | 2023-02-22 10:30 | PM.DS ---
DS: Admitting Diagnosis Discharge Date 02/22/23 1030 Admitting Diagnosis Acute UTI DS: Discharge Diagnosis Discharge Diagnosis (1) Acute metabolic encephalopathy: Code(s): G93.41 - Metabolic encephalopathy Status: Acute Assessment and Plan: presented the ER with mental status changes could be related to worsening dementia, UTI, stroke UA does appear possibly infected with 2+ leukocyte esterase, 1+ bacteria, white blood cell count 11 to 20 antibiotics ordered MRI cancelled since she is back to base line head CT does have some chronic infarcts seems better today possibly at patient's baseline Appears to be at baseline, most likely related to UTI (2) Acute UTI: Code(s): N39.0 - Urinary tract infection, site not specified Status: Acute Assessment and Plan: UA appears possibly infective with leukocyte esterase, 1+ bacteria, white blood cell count of 11 to 20 continue Rocephin Cultures grew Ecoli trend urine output Discharge with cefdinir PO for a total of 7 days (3) Dementia: Code(s): F03.90 - Unspecified dementia, unspecified severity, without behavioral disturbance, psychotic disturbance, mood disturbance, and anxiety Status: Acute Assessment and Plan: currently appears to be at baseline chronic and stable Continue donepezil Trend mood and mental status adjust therapy as indicated (4) Hypertension: Code(s): I10 - Essential (primary) hypertension Status: Acute Assessment and Plan: current blood pressure 119/58 continue home lisinopril trend blood pressure adjust therapy as indicated (5) Hyperlipidemia: Code(s): E78.5 - Hyperlipidemia, unspecified Status: Acute Assessment and Plan: Continue statin chronic and stable (6) Diabetes: Code(s): E11.9 - Type 2 diabetes mellitus without complications Status: Acute Assessment and Plan: current glucose 115 chronic and stable Continue Lantus and rapid acting with glargine and lispro Accu-Cheks AC and HS insulin sliding scale hypoglycemia protocol trend glucose adjust as indicated DS: Summary Hospital Course Hospital Course: patient is an 82-year-old female with past medical history of dementia, frequent UTIs diabetes, hypertension, hyperlipidemia who presented to the ED from the long-term due to altered mental status. Upon arrival patient was noted to be confused and not know why she was here. Currently patient seems to be at her baseline which is A&O times 1-2. head CT was performed showed some chronic infarcts. UA did appear infectious mildly with 11-20 white blood cell count, 1+ bacteria 2+ leukocyte esterase. Patient was started on IV ceftriaxone and has been converted to p.o. cefdinir for total of 7 day. currently labs and vital signs remained stable. Patient also appears to be back at baseline. She also stated that she is ok and that she is ready to go. Patient is stable for discharge at this time. Time Spent with Patient Time attestation: Total time spent providing and/or coordinating discharge services: Exam Narrative: General: well-nourished, well-appearing 82-year-old female, sitting up in bed, comfortable, NARD Neuro: awake, alert and oriented x2, speech clear, no focal neuro deficits noted HEENMT: normocephalic, atraumatic, EOMI, sclerae anicteric, moist oral mucosa Respiratory: Clear to auscultation bilaterally without crackles, rhonchi or wheezes, nonlabored breathing Cardio: regular rate, regular rhythm with S1-S2 Abdomen: nondistended, normoactive bowel sounds, soft, nontender to palpation Extremities: no edema, erythema, or tenderness to palpation, DP pulses 2+ bilaterally Skin: no rashes or lesions, warm and dry Psych: appropriate mood and affect, judgment and insight poor DS: Harry
[2023-02-22] MEDS: ALENDRONATE SODIUM 70 MG TABLET PO (11:40)
[2023-02-22 11:47] LABS: Glucose Point of Care 168 mg/dl (65-105)
== END 2023-02-22 13:55 | DRG 689 ==
LOC: ANHED 18:16 → ANH3MEDSUR 20:03
PROVIDERS: Admitting Provider Chiropractor; Emergency Provider Emergency Medicine; Visit Provider Nurse Practitioner
DX: N39.0 Urinary tract infection, site not specified (principal); G93.41 Metabolic encephalopathy; I10 Essential (primary) hypertension; E11.9 Type 2 diabetes mellitus without complications; E78.5 Hyperlipidemia, unspecified; M81.0 Age-related osteoporosis without current pathological fracture; F03.90 Unspecified dementia, unspecified severity, without behavioral disturbance, psychotic disturbance, mood disturbance, and anxiety; B96.20 Unspecified Escherichia coli [E. coli] as the cause of diseases classified elsewhere; Z95.1 Presence of aortocoronary bypass graft; Z79.82 Long term (current) use of aspirin
CPT/HCPCS: 36415; 70450; 80053; 81001; 82948; 83735; 85025; 87040; 87077; 87086; 87186; 96365; 96372; 99285; A9270; G0378; J0696; J1644; J1815